=== PATIENT | male | born 1940 | race Caucasian/White ===

== ENCOUNTER → 2016-12-06 | Outpatient (CLI) | payer MEDICARE, BC ==
[2016-12-06 07:58] LABS: CH 31.7; CHCM 32.9; HCT 49.9 % (39.0-53.0); HDW 2.75; HGB 16.3 gm/dL (13.0-17.5); MCH 31.7 pg (25.0-35.0); MCHC 32.7 g/dL (31.0-37.0); Mean Platelet Volume 6.8; RBC 5.14 m/uL (4.30-5.90); RDW 13.7 % (11.5-15.5); WBC 10.8 k/uL (3.8-10.6)
[2016-12-06 08:00] LABS: Potassium 4.7 mmol/L (3.5-5.1)
== END | disposition home or self-care (01) ==
LOC: LABPAT 07:33
PROVIDERS: ATTEND Internal Medicine Interventional Cardiology
DX: Z01.812 Encounter for preprocedural laboratory examination (principal); R07.9 Chest pain, unspecified
CPT/HCPCS: 80051; 82565; 84520; 85027

== ENCOUNTER 2016-12-07 06:15 | Day surgery (SDC) | payer MEDICARE, BC ==
[2016-12-02 11:32] VITALS: BMI 27.3
[~2016-12-07 06:15] MED LIST: ALPRAZolam 0.25 MG TAB PO PRN; ALPRAZolam 0.5 MG TAB PO PRN; ASPIRIN 325 MG TAB PO STA; ATORVASTATIN 80 MG TAB PO STA; NITROGLYCERIN SL TABS 0.4 MG TAB SUBLINGUAL PRN; SODIUM CHLORIDE 0.9% 1,000 ML in EMPTY BAG 1 BAG IV ONE
[2016-12-07] MEDS ORDERED: fentaNYL (PF) 50 MCG/ML 2 ML AMP ONE (07:28)
[2016-12-07] MEDS ORDERED: HEPARIN SODIUM 1,000 UNIT/ML VIAL ONE (07:28)
[2016-12-07] MEDS ORDERED: diphenhydrAMINE 50 MG/ML 1 ML VIAL ONE (07:28)
[2016-12-07] MEDS ORDERED: VERAPAMIL 2.5 MG/ML 2 ML AMP ONE (07:29)
[2016-12-07] MEDS ORDERED: SODIUM CHLORIDE 0.9% (PF) 10 ML VIAL ONE (07:29)
[2016-12-07] MEDS ORDERED: diphenhydrAMINE 50 MG/ML 1 ML VIAL IVP ONE (07:40)
[2016-12-07] MEDS ORDERED: fentaNYL (PF) 50 MCG/ML 2 ML AMP IV ONE (07:43)
[2016-12-07] MEDS ORDERED: LIDOCAINE 2% INJ 20 MG/ML SQ ONE (07:49)
[2016-12-07] MEDS ORDERED: VERAPAMIL SYRINGE (5 MG/10 ML) INTRAARTER ONE (07:51)
[2016-12-07] MEDS ORDERED: CLOPIDOGREL 75 MG TAB ONE (08:00)
[2016-12-07] MEDS ORDERED: BIVALIRUDIN 250 MG in SODIUM CHLORIDE 0.9% 50 ML IV ONE (08:08)
[2016-12-07] MEDS ORDERED: BIVALIRUDIN BOLUS 250 MG/50 ML IV ONE (08:08)
[2016-12-07] MEDS ORDERED: CLOPIDOGREL 75 MG TAB PO ONE (08:11)
[2016-12-07] MEDS ORDERED: NITROGLYCERIN 1000MCG/10ML SYRINGE INTRACORON ONE (08:20)
[2016-12-07] MEDS ORDERED: IODIXANOL 320 MG/ML 100 ML INTRAARTER ONE (08:32)
[2016-12-07] MEDS ORDERED: ZOLPIDEM 5 MG TAB PO PRN (08:44)
[2016-12-07] MEDS ORDERED: MAG HYDROX/AL HYDROX/SIMETH 30 ML CUP PO PRN (08:44)
[2016-12-07] MEDS ORDERED: NITROGLYCERIN SL TABS 0.4 MG TAB SUBLINGUAL PRN (08:44)
[2016-12-07] MEDS ORDERED: RX INFO: IV CONTRAST WAS GIVEN 1 EACH MISC MISCELLANE PRN (08:44)
[2016-12-07] MEDS ORDERED: SODIUM CHLORIDE 0.9% 1,000 ML IV SCH (08:45)
[2016-12-07] MEDS: FLECAINIDE 50 MG TAB PO SCH ×2 (12:21→20:17)
[2016-12-07] MEDS: ASPIRIN 81 MG CHEW PO SCH (12:21)
[2016-12-07] MEDS: METOPROLOL TARTRATE 50 MG TAB PO SCH ×2 (12:21→20:18)
--- NOTE | 2016-12-07 16:27 | CC ---
DATE OF SERVICE: Mr. Howell is a 76-year-old male with known history of aortic valve replacement who presented with symptoms of progressive dyspnea on exertion as well as chest discomfort with physical activity, consistent with new onset angina pectoris. In view of that, recommendation made regarding cardiac catheterization. The procedure as well as the risks and complications were discussed with the patient who is in full understanding and agreement. PROCEDURE: Patient was brought to the sleep lab technologist in fasting semi state after receiving fentanyl and Benadryl. He was prepped and draped in conventional fashion using Xylocaine anesthesia and Seldinger technique, a 6 [place] sheath was introduced in left radial artery. Selective right and left coronary angiography was performed using 5 [place] 4 bend right and left Mack catheter. Multiple views of the coronary arteries including hemiaxial views today obtained. Following that, catheter was removed. Images were reviewed. The patient received intra-arterial verapamil. FINDINGS: LEFT MAIN: This is a large-size vessel bifurcating into left circumflex artery. Left main coronary artery has a 10% to 20% plaque distally. LEFT ANTERIOR DESCENDING ARTERY: This is a large-size vessel reaching toward the apex with a wrap around the apex segment, giving rise to small diagonal branch. The left anterior descending artery proximally has a 20% plaque. The rest of the vessel has no high-grade stenosis. LEFT CIRCUMFLEX: This is a large nondominant vessel, giving rise to a large obtuse marginal branch distally in the proximal segment of the left circumflex. There is complex 99% stenosis in the mid to distal segment. There is intimal plaque of about 40%. The rest of the vessel has no high-grade stenosis. RIGHT CORONARY ARTERY: This is a large dominant vessel, has a superior take off, bifurcating distally into PDA and posterolateral segment and branches. The right coronary artery has mild intimal disease in the midsegment of 20% to 30% without any evidence of high-grade stenosis. LEFT VENTRICULOGRAM: Left ventriculogram was not performed. CONCLUSION: 1. Critical stenosis involving the proximal left circumflex. 2. Mild distal left main disease and proximal LAD and mid right coronary artery disease. RECOMMENDATIONS: In view of the findings and anatomy, I have recommended proceeding with angioplasty and stenting of the left circumflex. The procedure as well as risks and complications were discussed with the patient who is in full understanding and agreement.
--- NOTE | 2016-12-07 16:45 | PTCA ---
DATE OF SERVICE: 76-year-old male with a known history of aortic valve disease status post aortic valve replacement who presented with new onset angina pectoris, underwent cardiac catheterization, was found to have critical stenosis involving the proximal left circumflex. In view of that, recommendation was made regarding angioplasty and stenting. The procedure as well as risks and complications were discussed with the patient who is in full understanding and agreement. PROCEDURE: A 6 [place] FR4 guiding catheter the system. After cannulating the left main, a 0.014 balanced medium weight J-wire was advanced across the lesion, positioned distally. Then a 2.5 x 12 mm Trek balloon was advanced and one inflation at 10 atmospheres was done. Following that, the balloon was removed and a 3.0 x 15 mm Xience Alpine stent was deployed, it was dilated at 14 atmospheres. After the last inflation, after appropriate wait, the balloon and the guidewire were withdrawn back in guiding catheter. Images were obtained and repeated. Those images reveal stable successful stenting. At that point, the guiding catheter, the balloon and the guidewire removed. The sheath was removed. Hemostasis was obtained with deployment of a TR band. There were no immediate complications. Patient was returned to his room in stable condition. Of note, the patient received Angiomax per protocol as well as oral loading dose of Clopidogrel. He has no significant chest pain or EKG changes with inflations. RESULT: Successful stenting of the proximal left circumflex with reduction in stenosis from 99% to 0%. RECOMMENDATION: Patient will be continued on aspirin, Plavix, beta momo, statin. The importance of dual antiplatelet treatment were discussed with the patient and his family who are in full understanding and agreement.
--- NOTE | 2016-12-07 16:47 | LTR ---
December 07, 2016 RE: DanteChai Dear Dr. La: I had the pleasure of performing cardiac catheterization, coronary angioplasty and stenting on Mr. Howell at [facility] on the 07 of December and a full copy of procedure note will be forwarded to you. In brief, he was found to have critical stenosis involving the proximal left circumflex underwent successful stenting of that vessel using a drug-eluting stent I am hopeful that this procedure will stabilize his status and I would recommend to continue dual antiplatelet treatment. Thank you again for allowing me to participate in this patient's care. Please feel free to call for any questions. Sincerely, MIMI ROSARIO MD
[2016-12-07] MEDS ORDERED: ATORVASTATIN 40 MG TAB PO SCH (21:00)
[2016-12-08 02:35] VITALS: RESP 17
[2016-12-08 02:49] VITALS: PULSE 66
[2016-12-08 06:52] LABS: Potassium 4.5 mmol/L (3.5-5.1)
[2016-12-08] MEDS: METOPROLOL TARTRATE 50 MG TAB PO SCH (08:47)
[2016-12-08] MEDS: ASPIRIN 81 MG CHEW PO SCH (08:47)
[2016-12-08] MEDS: FLECAINIDE 50 MG TAB PO SCH (08:47)
[2016-12-08 08:54] VITALS: BP 134/65; TEMP 97.8
[2016-12-08] MEDS ORDERED: CLOPIDOGREL 75 MG TAB PO SCH (09:00)
--- NOTE | 2016-12-08 09:10 | PN ---
Mr. Howell is a 76-year-old male, status post aortic valve replacement who presented with symptoms of angina pectoris, underwent cardiac catheterization, was found to have critical stenosis involving the proximal left circumflex and underwent stenting of that vessel. He is doing well today, ambulating without difficulty. Denying any chest pain. No dizziness, palpitation. He feels better. He continues to be at this time on Lipitor 40 mg daily, flecainide 50 mg twice a day, metoprolol tartrate 50 mg twice a day, aspirin once a day, Plavix 75 mg daily. PHYSICAL EXAMINATION: Blood pressure 144/60 with a heart rate in the 60s. LUNGS: Clear. HEART: Regular rate and rhythm. S1, S2, no S3, with systolic murmur heard at the base. No diastolic murmur. No rub. ABDOMEN: Soft, nontender. EXTREMITIES: No edema. Left radial pulse intact. Lab data revealed BUN and creatinine 19 and 1.42, potassium 4.5. EKG no acute changes. IMPRESSION: 1. Status post stenting of the left circumflex. 2. Status post aortic valve replacement. 3. Hypertension. 4. History of atrial flutter, status post ablation maintaining sinus mechanism. RECOMMENDATION: Patient will be discharged home today and followed as an outpatient.
== END 2016-12-08 11:21 | disposition home or self-care (01) ==
LOC: CATHCVL 06:15 → 6SEL 08:30 → CATHCVL 12-08 11:21
PROVIDERS: ATTEND Internal Medicine Interventional Cardiology
DX: I25.119 Atherosclerotic heart disease of native coronary artery with unspecified angina pectoris (principal); I48.3 Typical atrial flutter; I10 Essential (primary) hypertension; Z95.2 Presence of prosthetic heart valve; J84.10 Pulmonary fibrosis, unspecified; Z88.0 Allergy status to penicillin; Z82.49 Family history of ischemic heart disease and other diseases of the circulatory system; Z79.01 Long term (current) use of anticoagulants; Z79.899 Other long term (current) drug therapy
CPT/HCPCS: 93454; 85347; 80048; C9600; C1769 ×2; C1887 ×2; C1894; C1725; C1874; J2001; J1200; Q9967; J3010; J0583

== ENCOUNTER → 2017-02-15 | Outpatient (CLI) | payer MEDICARE, BC ==
[2017-02-15 09:39] LABS: Calcium 9.5 mg/dL (8.4-10.2); Potassium 4.3 mmol/L (3.5-5.1); Total Bilirubin 1.1 mg/dL (0.2-1.3); Total Protein 7.6 g/dL (6.3-8.2)
== END ==
LOC: LABWHC1 08:18
PROVIDERS: ATTEND Internal Medicine Interventional Cardiology
DX: E78.2 Mixed hyperlipidemia (principal)
CPT/HCPCS: 36415; 80053; 80061

== ENCOUNTER → 2017-05-12 | Outpatient (CLI) | payer MEDICARE, BC ==
[2017-05-12 07:56] LABS: ALT 32 U/L (21-72); AST 20 U/L (17-59); Cholesterol 123 mg/dL (<200); Creatine Kinase 60 U/L (55-170); HDL Cholesterol 46 mg/dL (40-60); Triglycerides 137 mg/dL (<150)
== END | disposition home or self-care (01) ==
LOC: LABWHC1 07:15
PROVIDERS: ATTEND Internal Medicine Interventional Cardiology
DX: E78.2 Mixed hyperlipidemia (principal)
CPT/HCPCS: 36415; 80061; 82550; 84450; 84460

== ENCOUNTER 2017-05-22 07:14 | Day surgery (SDC) | payer MEDICARE, BC ==
[2017-05-17 14:45] VITALS: BMI 23.5
[~2017-05-22 07:14] MED LIST changes: -ALPRAZolam 0.25 MG TAB PO PRN; -ALPRAZolam 0.5 MG TAB PO PRN; -ASPIRIN 325 MG TAB PO STA; -ATORVASTATIN 80 MG TAB PO STA; +LACTATED RINGERS 1,000 ML IV SCH; -NITROGLYCERIN SL TABS 0.4 MG TAB SUBLINGUAL PRN; -SODIUM CHLORIDE 0.9% 1,000 ML in EMPTY BAG 1 BAG IV ONE
[2017-05-22] MEDS ORDERED: LACTATED RINGERS 1,000 ML IV ONE ×2 (07:21→08:43)
[2017-05-22 07:39] LABS: Glucose,Whole Blood 104 mg/dL (75-99)
[2017-05-22] MEDS ORDERED: LIDOCAINE 1% INJ 10MG/ML (20 ML MDV) ONE (08:06)
[2017-05-22] MEDS ORDERED: PROPOFOL 10 MG/ML 20 ML VIAL IV ONE (08:06)
[2017-05-22 08:40] VITALS: RESP 16
--- NOTE | 2017-05-22 08:48 | P.PCN ---
Date of Procedure: 05/22/17 Preoperative Diagnosis: Postoperative Diagnosis: Procedure(s) Performed: Procedure: 1. Esophagogastroduodenoscopy and biopsy. 2 Total colonoscopy. Preoperative diagnosis: Chronic reflux symptoms and history of polyps. Postoperative diagnosis: 1. Small sliding hiatal hernia with no obvious esophagitis or complicated reflux disease. 2. Mild gastritis and moderate duodenitis. 3. Sigmoid diverticulosis. 4. Low-grade internal hemorrhoids without bleeding. Preparation: HalfLytely prep. Sedation: Was provided by anesthesia. Brief clinical history: The patient is a 76-year-old male who is scheduled for this evaluation because of history of polyps. His last exam was in March 2012. In addition, the patient has history of chronic reflux and because of history of asbestos exposure, and finding of spots on his lungs, he is part of ongoing surveillance and monitoring. Procedure: With the patient on his left lateral decubitus position and after informed consent and adequate sedation, I passed the Olympus-GIF 160 video upper endoscope through the cricopharyngeus down the esophagus. GE junction was around 40 cm from the incisors and there was a small sliding hiatal hernia. The esophagus did not show any obvious erosions, ulcers, strictures or Ramirez 's esophagus. The endoscope was then passed into the stomach which was insufflated with air and inspected in detail including the retroflex view in the cardia. There was some mottling and erythema in the antrum but no ulcers or erosions. Pyloric channel did not show any ulcers. Duodenal bulb shows some mottling and erythema and in the descending duodenum there was a position and finding of small erosions and superficial ulcerations consistent with moderate esophagitis. There was no bleeding or gastric outlet obstruction. I obtained biopsies from the duodenum, antrum and esophagus then the endoscope was withdrawn and I proceeded to do colonoscopy. Perianal area did not show any fissures or fistulas. There were no masses felt on digital rectal examination. The Olympus CFQ 160L video colonoscope was then inserted in the rectum in the usual fashion and advanced to the cecum. The mucosa appeared healthy. There were multiple diverticular orifices seen scattered in the sigmoid with no evidence of acute diverticulitis or strictures. No polyps or tumors were seen. I retroflexed the endoscope in the rectum before the endoscope was withdrawn. Low-grade internal hemorrhoids were noted but there was no evidence of bleeding. The patient tolerated the procedure well. Plan the patient was reassured. Discussed dietary measures. At his age I did not recommend any further surveillance colonoscopy in the future and that can be kept as a contingency based on his overall health. Certainly, with the findings in the stomach and duodenum, further management of any upper GI complaints he may have could be addressed based on his course and biopsy results. He will follow up with you as planned. Implants: Indications for Procedure: Operative Findings: Description of Procedure:
[2017-05-22 09:33] VITALS: BP 104/68; PULSE 57
== END 2017-05-22 09:40 | disposition home or self-care (01) ==
LOC: ORWHC2ENDO 07:14
DX: Z12.11 Encounter for screening for malignant neoplasm of colon (principal); K21.0 Gastro-esophageal reflux disease with esophagitis; K29.50 Unspecified chronic gastritis without bleeding; K44.9 Diaphragmatic hernia without obstruction or gangrene; K29.80 Duodenitis without bleeding; K57.30 Diverticulosis of large intestine without perforation or abscess without bleeding; K64.8 Other hemorrhoids; Z86.010 Personal history of colon polyps; Z77.090 Contact with and (suspected) exposure to asbestos; E11.9 Type 2 diabetes mellitus without complications; I48.91 Unspecified atrial fibrillation; M19.90 Unspecified osteoarthritis, unspecified site; Z79.02 Long term (current) use of antithrombotics/antiplatelets; Z79.899 Other long term (current) drug therapy; Z91.09 Other allergy status, other than to drugs and biological substances
CPT/HCPCS: 88305; 88342; 43239; J2001; J2704; G0105

== ENCOUNTER → 2017-08-10 | Outpatient (CLI) | payer MEDICARE, BC ==
[2017-08-10 14:54] LABS: CH 31.7; CHCM 33.2; HCT 46.1 % (39.0-53.0); HDW 2.62; HGB 15.1 gm/dL (13.0-17.5); MCH 31.6 pg (25.0-35.0); MCHC 32.9 g/dL (31.0-37.0); MCV 96.3 fL (80.0-100.0); Mean Platelet Volume 7.3; RBC 4.78 m/uL (4.30-5.90); RDW 14.7 % (11.5-15.5)
--- NOTE | 2017-08-10 14:57 | XR ---
EXAMINATION TYPE: XR chest 2V DATE OF EXAM: 08/10/2017 COMPARISON: 10/20/2016 TECHNIQUE: PA and lateral views submitted. HISTORY: Right chest pain FINDINGS: The lungs are clear and there is no pneumothorax, pleural effusion, or focal pneumonia. Calcificati on along the right chest. Stable pleural-based thickening stable. Underlying COPD suspected. Arthropa thy of the shoulders. Postoperative change involving the mediastinum. Hypertrophic and degenerative c hange of the spine. IMPRESSION: 1. No acute process. Correlate for COPD and chronic interstitial lung disease. 2. Pleural-based thickening and calcification.
[2017-08-10 15:03] LABS: Calcium 9.7 mg/dL (8.4-10.2); Potassium 5.1 mmol/L (3.5-5.1); Total Bilirubin 0.6 mg/dL (0.2-1.3); Total Protein 7.6 g/dL (6.3-8.2)
== END | disposition home or self-care (01) ==
LOC: LABWHC1 14:08
PROVIDERS: ATTEND Internal Medicine Interventional Cardiology
DX: R07.89 Other chest pain (principal); I25.10 Atherosclerotic heart disease of native coronary artery without angina pectoris
CPT/HCPCS: 36415; 71020; 80053; 85027; 85379

== ENCOUNTER → 2017-08-16 | Outpatient (CLI) | payer MEDICARE, BC ==
--- NOTE | 2017-08-16 15:44 | XR ---
EXAMINATION TYPE: XR chest 2V DATE OF EXAM: 08/16/2017 COMPARISON: Prior chest x-ray 08/10/2017 HISTORY: Dyspnea TECHNIQUE: Frontal and lateral views of the chest are obtained. FINDINGS: Patient is post median sternotomy. Pleural parenchymal changes show similar appearance to prior exam. No pneumothorax or pleural effusion. Cardiomediastinal silhouette, pulmonary vascularity and homer are stable. Patient is post aortic valve IMPRESSION: Stable exam, no acute abnormality. CT scan could be performed for increased sensitivity as indicated. Interstitial lung disease. Postop changes.
--- NOTE | 2017-08-16 17:00 | NM ---
EXAMINATION TYPE: NM pul vent and perfuse DATE OF EXAM: 08/16/2017 COMPARISON: Correlation radiograph same day HISTORY: 76-year-old male with shortness of breath, dyspnea TECHNIQUE: Utilizing inhalation of 71.5 mCi Tc 99m DTPA aerosol and intravenous injection of 5.5 mCi of Tc 99m MAA, ventilation and perfusion images are acquired post injection in multiple projections. FINDINGS: Mild heterogeneity of ventilation and perfusion. Relatively decreased ventilation and perfusion in elizabeth th upper lungs probably due to underlying chronic lung disease. No mismatched perfusion defects are i dentified. IMPRESSION: Low probability for pulmonary embolus.
== END | disposition home or self-care (01) ==
LOC: RADNMMAIN 15:07
PROVIDERS: ATTEND Internal Medicine Interventional Cardiology
DX: J84.9 Interstitial pulmonary disease, unspecified (principal); Z98.890 Other specified postprocedural states
CPT/HCPCS: 71020; 78582; A9540; A9567

== ENCOUNTER → 2018-05-29 | Outpatient (CLI) | payer MEDICARE, BC ==
--- NOTE | 2018-05-29 08:32 | CT ---
EXAMINATION TYPE: High-resolution CT chest DATE OF EXAM: 05/29/2018 COMPARISON: 10/17/2014 and radiographs 05/23/2018 HISTORY: 77-year-old male follow-up Pulmonary fibrosis TECHNIQUE: Contiguous high-resolution axial scanning of the chest with 1 mm slice thickness and 1 cm gap per HRCT protocol. No contrast administered. Both supine and prone imaging was performed. CT DLP: 583.5 mGycm Automated exposure control for dose reduction was used. FINDINGS: Heart is upper limits of normal in size without pericardial effusion. Median sternotomy wires are pre sent. Prosthetic aortic valve. Ascending aorta remains aneurysmal at 4.1 cm. Conventional arch vessel branching anatomy. No thoracic lymphadenopathy by CT size criteria allowing for HRCT technique. There is pleural-based thickening along the right hemithorax which is new from prior exam. Scattered calcified pleural plaques especially on the right and continued chronic small right pleural effusion. Right apical pleural-parenchymal scarring and redemonstrated fibrotic changes at the lung bases with bronchiectasis, reticular densities, and patchy areas of groundglass which show some increase from 1 12/18/2013. There is a new 2.4 cm subpleural lobulated nodule peripheral right upper lobe/apex, series 4 image 7. Additional couple patchy areas of subpleural density in the right upper lobe measuring up to 1.2 cm, series 4 image 11 and 12. No consolidation or pleural effusion seen. Small hiatal hernia visualized upper abdomen otherwise shows no gross abnormality by HRCT technique. Bones: Endplate spondylosis throughout. Degenerative changes left glenohumeral joint. IMPRESSION: 1. REDEMONSTRATED ASBESTOS RELATED PLEURAL DISEASE AND PULMONARY FIBROSIS IN THE LOWER LUNGS WITH ASS OCIATED TRACTION BRONCHIECTASIS. FINE INTERSTITIAL FIBROSIS WITH GROUNDGLASS SHOWS INCREASE FROM 2014 . 2. CHRONIC SMALL RIGHT PLEURAL EFFUSION BUT WITH NEW MILD PLEURAL-BASED THICKENING AROUND THE RIGHT L LILI. MOST NOTABLY, THERE IS A NEW 2.4 CM SUBPLEURAL/PLEURAL BASED NODULE ALONG THE PERIPHERAL RIGHT A PEX/RIGHT UPPER LOBE WORRISOME FOR EITHER MESOTHELIOMA OR LUNG CANCER. FURTHER APPROPRIATE WORKUP AND MANAGEMENT RECOMMENDED.
== END | disposition home or self-care (01) ==
LOC: RADCTMAIN 07:04
PROVIDERS: ATTEND Internal Medicine
DX: J84.10 Pulmonary fibrosis, unspecified (principal); J92.0 Pleural plaque with presence of asbestos; J47.9 Bronchiectasis, uncomplicated; J90 Pleural effusion, not elsewhere classified; R91.1 Solitary pulmonary nodule
CPT/HCPCS: 71250

== ENCOUNTER → 2018-06-02 | Outpatient (CLI) | payer MEDICARE, BC ==
--- NOTE | 2018-06-06 20:09 | PE ---
EXAMINATION TYPE: PET CT fusion skull to thigh DATE OF EXAM: 06/02/2018 CLINICAL HISTORY: 77-year-old male initial staging for mesothelioma. TECHNIQUE: Following the intravenous administration of 14.5 mCi of F-18 FDG, whole body images are performed from the skull base to the midthigh. Images are reviewed on the computer in the coronal, a xial, and sagittal planes. Reconstructed rotating images are created on independent workstation and reviewed on the computer. A localization and attenuation correction CT is performed in conjunction with the PET scan. Glucose level: 101 mg/dL CTDI: 4.73 mGy DLP: 476.11 mGy-cm COMPARISON: Correlation CT 05/29/[address] 10/17/2014 FINDINGS: PET: A 2.3 cm round pleural-based mass along the lateral right apex shows very intense FDG uptake, max SUV 16.0. The diffuse pleural rind around the right lung noted to be new from 10/17/2014 shows variable m ild FDG uptake, max SUV 2.6. However, there is some more nodular areas of pleural-based thickening th at show borderline moderate uptake, max SUV 3.5, for example, peripheral right upper lobe axial image 92. Second area of pleural and subpleural intense hypermetabolism is located along the peripheral right l ower lobe at the site of greatest soft tissue thickening, max SUV 6.5. This spans up to 8.9 x 1.6 cm. The chronic small right pleural effusion shows minimal FDG uptake similar to the generalized pleural based thickening along the lower left hemithorax, max SUV 1.7. Mediastinal lymph nodes measure up to 8 mm in the right tracheobronchial angle and precarinal region but do not show significant FDG uptake. Average liver SUV 2.4. Tiny nodule within the perirenal fat posterior right upper abdomen, axial image 152 was slightly smal ler but present back in 2013. This area shows no discrete FDG uptake. Questionable clinical significa nce. There is slightly elongated increased FDG uptake at the proximal right hamstring, borderline moderate uptake, max SUV 3.4 likely due to tendinopathy. Otherwise, physiologic FDG uptake within the neck, abdomen, and pelvis. ATTENUATION CORRECTION CT: Visualized paranasal sinuses and mastoid air cells are pneumatized. No cervical lymphadenopathy. Median sternotomy wires are present with prosthetic aortic valve. The heart is borderline enlarged wi thout pericardial effusion. Ascending aortic aneurysm are 4.2 cm not significantly changed from 10/17 where it measured 4.1 cm. Conventional arch vessel branching anatomy. No thoracic lymphadenopat hy by CT size criteria. Changes of asbestos related pleural disease with pleural based thickening and calcified pleural plaques. Chronic small right pleural effusion. Fibrotic changes at the lung bases with some traction bronchiectasis as described on 05/29/2018. Small hiatal hernia. No dilated small bowel, free fluid, or free air. No mesenteric or retroperitone al lymphadenopathy. Normal appendix. Scattered mild stool. No pericolonic inflammatory change. Descen ding and sigmoid colonic diverticulosis. The bladder is urine distended. Prostate gland is enlarged measuring 6.2 cm. No abnormal fluid collec tion in the pelvis or pelvic lymphadenopathy. Bones: End-stage degenerative changes at the left hip and [id number] at the right hip. Degenera tive changes at the SI joints and within the lumbar spine. Endplate spondylosis thoracic spine. IMPRESSION: 1. 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 The 2.3 cm pleural-based mass at the lateral right apex shows very intense hypermetabolism compatibl e with carcinoma. 2.The large area of pleural and subpleural soft tissue thickening at the peripheral right lower lobe spanning up to 8.9 x 1.6 cm has intense uptake and is also suggestive of mesothelioma. 3. There are scattered nodular areas along the rind that show borderline moderate uptake and are susp icious as well, for example, axial image 92. The chronic changes of asbestos related pleural disease and most of the rind have minimal to mild uptake. 4. No evidence for distant metastases. 5. Incidental: Ascending aortic aneurysm (4.2 cm, relatively stable), small hiatal hernia, left-sided colonic diverticulosis, and prostatomegaly (6.2 cm).
== END | disposition home or self-care (01) ==
LOC: RADPETMAIN 13:54
PROVIDERS: ATTEND Internal Medicine Critical Care Medicine
DX: C45.0 Mesothelioma of pleura (principal); J94.8 Other specified pleural conditions
CPT/HCPCS: 78815; A9552

== ENCOUNTER 2018-07-04 08:50 | Day surgery (SDC) | payer MEDICARE, BC ==
[2018-07-04 09:27] LABS: Mean Platelet Volume 6.6; Platelet Count 222 k/uL (150-450)
[2018-07-04 09:32] LABS: INR 1.2 (<1.2); Prothrombin Time 11.2 sec (9.0-12.0)
[2018-07-04 11:23] VITALS: RESP 18
[2018-07-04 11:25] VITALS: TEMP 98
--- NOTE | 2018-07-04 11:59 | XR ---
EXAMINATION TYPE: XR chest 1V portable DATE OF EXAM: 07/04/2018 COMPARISON: 05/23/2018 HISTORY: Post lung biopsy TECHNIQUE: Single frontal view of the chest is obtained. FINDINGS: There is a mass in the right upper lobe. There is subsegmental consolidation and pleural t hickening involving the right lung. Left lung is clear. Postoperative changes are seen. No overt fail ure. Arthropathy of the shoulders. IMPRESSION: No pneumothorax post lung biopsy
--- NOTE | 2018-07-04 12:16 | CT ---
EXAMINATION TYPE: CT guided FNA DATE OF EXAM: 07/04/2018 COMPARISON: 06/02/2018 HISTORY: Right lung mass CT DLP: 2057.2 mGycm The procedure is discussed with the patient, the risks, complications, benefits and alternatives, wer e discussed and any questions were answered. Informed consent was obtained. The patient is placed s upine on the CT table, prepped and draped in the usual sterile fashion. Utilizing a 22-gauge Chiba needle access into the right upper lobe mass was achieved with 2 passes pe rformed. Pathology confirmed adequate sample. All elements of maximal barrier technique were utiliz ed. The patient remained stable throughout the procedure with no immediate postprocedural complicati on. IMPRESSION: 1. Successful CT guided fine needle aspiration of a right upper lobe lung mass
[2018-07-04 12:46] VITALS: BP 113/71; PULSE 61
--- NOTE | 2018-07-04 13:11 | XR ---
EXAMINATION TYPE: XR chest 1V portable DATE OF EXAM: 07/04/2018 COMPARISON: 07/04/2018 HISTORY: Follow-up pneumothorax TECHNIQUE: Single frontal view of the chest is obtained. FINDINGS: Pleural-parenchymal changes involving the right lung are stable. Right upper lobe lung mas s is stable. There is no sizable pneumothorax. Postoperative changes are seen. Underlying COPD suspec carmelo. IMPRESSION: 1. No pneumothorax post lung biopsy.
== END 2018-07-04 13:15 | disposition home or self-care (01) ==
LOC: RADPROMAIN 08:50
PROVIDERS: ATTEND Surgery
DX: C34.91 Malignant neoplasm of unspecified part of right bronchus or lung (principal)
CPT/HCPCS: 10022; 36415; 71045; 77012; 85049; 85610; 88173; 88305; 88341; 88342

== ENCOUNTER → 2018-10-08 | Outpatient (CLI) | payer MEDICARE, BC ==
--- NOTE | 2018-10-08 23:28 | CT ---
EXAMINATION TYPE: CT chest w con DATE OF EXAM: 10/08/2018 COMPARISON: PET/CT 06/02/2018 HISTORY: 78-year-old male Follow up to Rt upper lobe CA TECHNIQUE: Contiguous axial scanning of the chest after the administration of 80 mL of Isovue 300. C oronal/sagittal reconstructions performed. CT DLP: 533mGycm. Automatic exposure control utilized for a dose reduction. FINDINGS: Median sternotomy wires are present with post-CABG changes. Heart upper limits of normal in size without pericardial effusion. Prosthetic aortic valve. Ascending aorta remains aneurysmal at 4.1 cm. Conventional arch vessel branching anatomy. 7 mm precarinal lymph node, unchanged. No enlarging thoracic lymphadenopathy. Bilateral pleural-based thickening with scattered calcified pleural plaques are redemonstrated. Chron ic small right-sided pleural effusion and redemonstrated right-sided pleural rind, overall similar. The subpleural mass along the lateral right apex shows interval decrease in size now measuring 1.1 cm versus 2.3 cm, previously. The elongated area of subpleural thickening and density along the peripheral right lower lobe is over all stable in appearance without any interval progression spending up to 8.3 cm x 1.5 cm thick. Extensive subpleural reticular changes within the mid and lower lungs. Visualized upper abdomen shows no gross abnormality. Bones: Bridging anterior endplate spondylosis upper to mid thoracic spine compatible with DISH. No os seous destructive process seen. IMPRESSION: 1. Redemonstration of bilateral changes of asbestos related pleural disease, more so on the right wit h stable pleural rind and small chronic right-sided pleural effusion. 2. The subpleural mass along the lateral right apex has decreased in size now measuring 1.1 cm versus 2.3 cm, previously. 3. Elongated thickened band of soft tissue density at the peripheral right lower lobe is overall stab le in appearance without any interval progression or increasing nodularity, measuring up to 8.3 cm lo ng and 1.5 cm thick. The area was noted to be hypermetabolic on patient's prior PET/CT. 4. Stable ascending aortic aneurysm at 4.1 cm.
== END | disposition home or self-care (01) ==
LOC: RADCTMAIN 12:07
PROVIDERS: ATTEND Radiology Radiation Oncology
DX: C34.11 Malignant neoplasm of upper lobe, right bronchus or lung (principal); I71.2 Thoracic aortic aneurysm, without rupture; J90 Pleural effusion, not elsewhere classified; J94.8 Other specified pleural conditions
CPT/HCPCS: 82565; 84520; 71260; 36415; Q9967

== ENCOUNTER → 2018-11-14 | Outpatient (CLI) | payer MEDICARE, BC ==
[2018-11-14 16:44] LABS: Albumin 4.2 g/dL (3.80-4.90); Albumin/Globulin Ratio 2.21 (1.20-2.10); Anion Gap 8.9 mmol/L (4.00-12.00); Calcium 9.1 mg/dL (8.7-10.3); Carbon Dioxide 24.1 mmol/L (21.6-31.8); Globulin 1.9 g/dL (1.6-3.3); LDL Cholesterol,Calculated 55.2 mg/dL (0.0-131.0); Potassium 4.6 mmol/L (3.5-5.5); Total Bilirubin 0.6 mg/dL (0.2-1.2); Total Protein 6.1 g/dL (6.2-8.2); VLDL Calculation 18.8 mg/dL (5.00-40.00)
== END ==
LOC: LABWHC1 07:47
PROVIDERS: ATTEND Internal Medicine Interventional Cardiology
DX: E78.2 Mixed hyperlipidemia (principal); R00.2 Palpitations
CPT/HCPCS: 36415; 80053; 80061; 84443

== ENCOUNTER → 2019-01-14 | Outpatient (CLI) | payer MEDICARE, BC ==
--- NOTE | 2019-01-14 13:16 | CT ---
EXAMINATION TYPE: CT chest abdomen w con DATE OF EXAM: 01/14/2019 COMPARISON: Prior chest CT 10/08/2018, PET/CT 06/02/2018 HISTORY: Follow up lung cancer CT DLP: 670.4 mGycm. Automated Exposure Control for Dose Reduction was Utilized. CONTRAST: CT scan of the thorax, abdomen and pelvis is performed with IV Contrast, patient injected with 80 mL of Isovue 300. FINDINGS: LUNGS: The lungs are remarkable for volume loss in the right hemithorax, compensatory hypertrophy lef t hemithorax. There is diffuse pleural thickening circumferentially in the right hemithorax with some pleural calcification present bilaterally towards the lung bases posteriorly. Interstitial changes a re again noted within the lungs greatest at the lung bases. The tracheobronchial tree is patent. MEDIASTINUM: There are no greater than 1 cm hilar or mediastinal lymph nodes. No pericardial effusi on is seen. Patient is post median sternotomy. Metallic artifact at the aortic root level. There are coronary artery calcifications present. Possible small hiatal hernia. Aorta shows borderline dilation at 4 cm proximally LIVER/GB: No significant abnormality is appreciated. Subcentimeter nodular soft tissue density poste rior to the right lobe of liver is stable. PANCREAS: No significant abnormality is seen. SPLEEN: No significant abnormality is seen. ADRENALS: No significant abnormality is seen. KIDNEYS: No significant abnormality is seen. BOWEL: No significant abnormality is seen. GENITAL ORGANS: No gross abnormality seen. LYMPH NODES: No greater than 1cm abdominal or pelvic lymph nodes are appreciated. OSSEOUS STRUCTURES: Degenerative disc changes noted in the visualized spine. Facet arthropathy noted especially at the lower lumbar spine. Arthropathy present within the shoulders. OTHER: No significant additional abnormality is seen. IMPRESSION: Findings are similar to prior exam. Pleural thickening is described. Correlate for asbest os related disease.
== END | disposition home or self-care (01) ==
LOC: RADCTMAIN 12:01
PROVIDERS: ATTEND Radiology Radiation Oncology
DX: C34.11 Malignant neoplasm of upper lobe, right bronchus or lung (principal); J92.9 Pleural plaque without asbestos; Z92.3 Personal history of irradiation; Z87.891 Personal history of nicotine dependence
CPT/HCPCS: 82565; 84520; 71260; 74160; 36415; Q9967

== ENCOUNTER 2019-05-18 10:37 | Observation (INO) | payer MEDICARE, BC ==
[2019-05-18] MEDS ORDERED: SODIUM CHLORIDE 0.9% 500 ML 500 ML IV STA (11:00)
--- NOTE | 2019-05-18 11:07 | ED ---
General Adult HPI - General Chief complaint: Shortness of Breath Stated complaint: RAVINDER Time Seen by Provider: 05/18/19 10:40 Source: patient, RN notes reviewed Mode of arrival: ambulatory Limitations: no limitations - History of Present Illness Initial comments: This is an 78-year-old male who presents emergency department with past medical history significant for mesothelioma. Patient states she recently had a spot radiated and left him with a little pneumonitis. Patient states him and his recently drove out to [place] and back. 2 weeks ago the patient stated he started having some shortness of breath and a cough and both of gotten progre ssively worse. Patient denies any chest pain or palpitations. Patient states exertion definitely makes shortness of breath worse. Patient denies any headache patient denies numbness weakness. Patient denies lightheadedness dizziness or near syncopal episode. Patient denies any swelling to the legs or calf tenderness. - Related Data Home Medications Medication Instructions Recorded Confirmed Flecainide [Tambocor] 50 mg PO BID 07/28/14 05/18/19 Metoprolol Tartrate [Lopressor] 50 mg PO BID 07/28/14 05/18/19 Atorvastatin [Lipitor] 20 mg PO HS 05/17/17 05/18/19 Isosorbide Mononitrate ER [Imdur] 30 mg PO DAILY 06/26/18 05/18/19 predniSONE 30 mg PO DAILY 05/18/19 05/18/19 Previous Rx's Medication Instructions Recorded Aspirin 81 mg PO DAILY chew 12/08/16 Clopidogrel [Plavix] 75 mg PO DAILY #90 tab 12/08/16 Nitroglycerin Sl Tabs [Nitrostat] 0.4 mg SUBLINGUAL Q5M PRN #25 tab 12/08/16 Allergies Allergy/AdvReac Type Severity Reaction Status Date / Time amoxicillin [Amoxicillin] Allergy Rash/Hives Verified 05/18/19 11:18 Review of Systems ROS Statement: Those systems with pertinent positive or pertinent negative responses have been documented in the HPI. ROS Other: All systems not noted in ROS Statement are negative. Past Medical History Past Medical History: Cancer, GERD/Reflux, Osteoarthritis (OA), Syncope Additional Past Medical History / Comment(s): had past chest pressure radiating to left shoulder/neck/face/head, murmur, sinus,glasses, [place],upper dentures/lower partial, having difficulty with activity and SOB. asbestosise exposure and pleural based lung mass. History of Any Multi-Drug Resistant Organisms: None Reported Past Surgical History: Cardiac Valve Replacement, Heart Catheterization, Hernia Repair, Tonsillectomy Additional Past Surgical History / Comment(s): kate, aortic valve replacement 03/2010, nasel surg x3 , rt cataract, colonoscopy, clay inguinal hernia Past Anesthesia/Blood Transfusion Reactions: No Reported Reaction Past Psychological History: No Psychological Hx Reported Smoking Status: Never smoker Past Alcohol Use History: None Reported Past Drug Use History: None Reported - Past Family History Mother Family Medical History: No Reported History Father Family Medical History: Cancer Additional Family Medical History / Comment(s): heart problems Sister(s) Family Medical History: Cancer Additional Family Medical History / Comment(s): famaily hx of cancer- breast, lung, esophageal, skin, pancareatic. General Exam - General Exam Comments Initial Comments: GENERAL: Patient is well-developed and well-nourished. Patient is nontoxic and well- hydrated and is in mild distress. ENT: Neck is soft and supple. No significant lymphadenopathy is noted. Oropharynx is clear. Moist mucous membranes. Neck has full range of motion without eliciting any pain. EYES: The sclera were anicteric and conjunctiva were pink and moist. Extraocular movements were intact and pupils were equal round and reactive to light. Eyelids were unremarkable. PULMONARY: Patient has slight crackles in the right base. CARDIOVASCULAR: Patient is tachycardic at 125 beats a minute ABDOMEN: Soft and nontender with normal bowel sounds. SKIN: Skin is clear with no lesions or rashes and otherwise unremarkable. NEUROLOGIC: Patient is alert and oriented x3. Cranial nerves II through XII are grossly intact. Motor and sensory are also intact. Normal speech, volume and content. Symmetrical smile. MUSCULOSKELETAL: Normal extremities with adequate strength and full range of motion. LYMPHATICS: No significant lymphadenopathy is noted PSYCHIATRIC: Normal psychiatric evaluation. Limitations: no limitations Course Vital Signs 05/18/19 05/18/19 05/18/19 10:43 11:45 12:30 Temperature 97.5 F L Pulse Rate 52 L 73 76 Respiratory 18 18 18 Rate Blood Pressure 101/60 111/73 99/65 O2 Sat by Pulse 96 98 98 Oximetry Medical Decision Making - Medical Decision Making EKG shows sinus tachycardia at 125 bpm OR interval is 142 QRS is 78 QT interval 308 QTC is 444. Patient's EKG shows no ST segment elevation or depression or T wave abnormalities are noted. Chest x-ray shows no acute abnormality. Computed tomography scan of the chest shows no acute normalities. Patient's sugar was 461. The patient Humalog. I gave the patient a breathing treatment because he still short of breath. I spoke with sheet agreed to admit the patient admitted the patient wrote admitting orders. I consult Dr. Lake - Lab Data Result diagrams: 05/18/19 10:58 05/18/19 10:58 Lab Results 05/18/19 05/18/19 05/18/19 Range/Units 10:58 10:58 10:58 WBC 12.6 H (3.8-10.6) k/uL RBC 4.61 (4.30-5.90) m/uL Hgb 14.8 (13.0-17.5) gm/dL Hct 43.4 (39.0-53.0) % MCV 94.1 (80.0-100.0) fL MCH 32.0 (25.0-35.0) pg MCHC 34.0 (31.0-37.0) g/dL RDW 17.3 H (11.5-15.5) % Plt Count 173 (150-450) k/uL Neutrophils % 84 % Lymphocytes % 9 % Monocytes % 6 % Eosinophils % 1 % Basophils % 0 % Neutrophils # 10.6 H (1.3-7.7) k/uL Lymphocytes # 1.1 (1.0-4.8) k/uL Monocytes # 0.7 (0-1.0) k/uL Eosinophils # 0.1 (0-0.7) k/uL Basophils # 0.0 (0-0.2) k/uL Anisocytosis Slight PT 10.0 (9.0-12.0) sec INR 0.9 (<1.2) APTT 22.3 (22.0-30.0) sec D-Dimer 0.89 H (<0.60) mg/L FEU Sodium 136 L (137-145) mmol/L Potassium 4.2 (3.5-5.1) mmol/L Chloride 98 (98-107) mmol/L Carbon Dioxide 26 (22-30) mmol/L Anion Gap 12 mmol/L BUN 19 (9-20) mg/dL Creatinine 1.20 (0.66-1.25) mg/dL Est GFR (CKD-EPI)AfAm 66 (>60 ml/min/1.73 sqM) Est GFR (CKD-EPI)NonAf 57 (>60 ml/min/1.73 sqM) Glucose 461 H (74-99) mg/dL Calcium 9.1 (8.4-10.2) mg/dL Magnesium 2.0 (1.6-2.3) mg/dL Total Bilirubin 2.2 H (0.2-1.3) mg/dL AST 16 L (17-59) U/L ALT 24 (21-72) U/L Alkaline Phosphatase 103 (38-126) U/L Troponin I (0.000-0.034) ng/mL Total Protein 6.4 (6.3-8.2) g/dL Albumin 3.7 (3.5-5.0) g/dL 05/18/19 Range/Units 10:58 WBC (3.8-10.6) k/uL RBC (4.30-5.90) m/uL Hgb (13.0-17.5) gm/dL Hct (39.0-53.0) % MCV (80.0-100.0) fL MCH (25.0-35.0) pg MCHC (31.0-37.0) g/dL RDW (11.5-15.5) % Plt Count (150-450) k/uL Neutrophils % % Lymphocytes % % Monocytes % % Eosinophils % % Basophils % % Neutrophils # (1.3-7.7) k/uL Lymphocytes # (1.0-4.8) k/uL Monocytes # (0-1.0) k/uL Eosinophils # (0-0.7) k/uL Basophils # (0-0.2) k/uL Anisocytosis PT (9.0-12.0) sec INR (<1.2) APTT (22.0-30.0) sec D-Dimer (<0.60) mg/L FEU Sodium (137-145) mmol/L Potassium (3.5-5.1) mmol/L Chloride (98-107) mmol/L Carbon Dioxide (22-30) mmol/L Anion Gap mmol/L BUN (9-20) mg/dL Creatinine (0.66-1.25) mg/dL Est GFR (CKD-EPI)AfAm (>60 ml/min/1.73 sqM) Est GFR (CKD-EPI)NonAf (>60 ml/min/1.73 sqM) Glucose (74-99) mg/dL Calcium (8.4-10.2) mg/dL Magnesium (1.6-2.3) mg/dL Total Bilirubin (0.2-1.3) mg/dL AST (17-59) U/L ALT (21-72) U/L Alkaline Phosphatase (38-126) U/L Troponin I 0.021 (0.000-0.034) ng/mL Total Protein (6.3-8.2) g/dL Albumin (3.5-5.0) g/dL Disposition Clinical Impression: Dyspnea, New onset type 2 diabetes mellitus Disposition: ADMITTED IP TO THIS HOSP Referrals: Aroldo Gaytan DO [Primary Care Provider] - 1-2 days Time of Disposition: 13:28
[2019-05-18 11:39] LABS: Albumin 3.7 g/dL (3.5-5.0); Anisocytosis Slight; Basophils % (A) 0 %; Calcium 9.1 mg/dL (8.4-10.2); Eosinophils # (A) 0.1 k/uL (0-0.7); Eosinophils % (A) 1 %; HCT 43.4 % (39.0-53.0); HGB 14.8 gm/dL (13.0-17.5); Lymphocytes # (A) 1.1 k/uL (1.0-4.8); Lymphocytes % (A) 9 %; MCV 94.1 fL (80.0-100.0); Monocytes # (A) 0.7 k/uL (0-1.0); Monocytes % (A) 6 %; Neutrophils # (A) 10.6 k/uL (1.3-7.7); Neutrophils % (A) 84 %; Platelet Count 173 k/uL (150-450); Potassium 4.2 mmol/L (3.5-5.1); RBC 4.61 m/uL (4.30-5.90); RDW 17.3 % (11.5-15.5); Total Bilirubin 2.2 mg/dL (0.2-1.3); Total Protein 6.4 g/dL (6.3-8.2); WBC 12.6 k/uL (3.8-10.6)
[2019-05-18 11:46] LABS: INR 0.9 (<1.2); Partial Thromboplastin Time 22.3 sec (22.0-30.0)
--- NOTE | 2019-05-18 11:50 | XR ---
EXAMINATION TYPE: XR chest 2V DATE OF EXAM: 05/18/2019 COMPARISON: 02/05/2019 TECHNIQUE: PA and lateral views submitted. HISTORY: Shortness of breath FINDINGS: Median sternotomy wires are present. Pleural-based densities relating to asbestos related pleural dis ease. Chronic small right pleural effusion and band of opacity right mid to lower lung. Pleural-based thickening throughout the right hemithorax. Previous nodule at the lateral right apex has been repla toni by prominent interstitial density throughout the apex. Median sternotomy wires with prosthetic ao rtic valve. Arthropathy of the shoulders. IMPRESSION: Stable findings. 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 The previously seen lateral right apical nodule has be en replaced by interstitial infiltrate, possibly fibrosis if there has been radiation therapy here. S ubtle underlying infectious infiltrate would be difficult to exclude.
[2019-05-18 11:56] LABS: D-Dimer 0.89 mg/L FEU (<0.60)
[2019-05-18] MEDS ORDERED: KETOROLAC 60 MG/2 ML VIAL IVP STA (12:13)
--- NOTE | 2019-05-18 12:50 | CT ---
EXAMINATION TYPE: CT chest angio for PE DATE OF EXAM: 05/18/2019 COMPARISON: 01/14/2019 HISTORY: Breathing troubles CT DLP: 339 mGycm Automated exposure control for dose reduction was used. CONTRAST: CT Chest for pulmonary embolism performed with with IV Contrast, patient injected with 80 mL of Isovu e 300. FINDINGS: LUNGS: The lungs are remarkable for volume loss in the right hemithorax, compensatory hypertrophy lef t hemithorax. There is diffuse pleural thickening circumferentially in the right hemithorax with some pleural calcification present bilaterally towards the lung bases posteriorly. Interstitial changes a re again noted within the lungs greatest at the lung bases. The tracheobronchial tree is patent. 3 mm left upper lobe pulmonary nodule. MEDIASTINUM: There are no greater than 1 cm hilar or mediastinal lymph nodes. No pericardial effusion is seen. Patient is post median sternotomy. Metallic artifact at the aortic root level. There are co ronary artery calcifications present. Possible small hiatal hernia. Aorta demonstrates mild aneurysmal dilation measuring 4.4 cm within the ascending aorta and stable fr om prior. Coronary artery calcification and cardiomegaly. Pulmonary arteries enhance normally. OTHER: No additional significant abnormality is seen. IMPRESSION: 1. No CT evidence of pulmonary embolism. 2. Chronic pleural-parenchymal changes suggestive of asbestos related disease. Pleural thickening and calcification is seen and findings suggestive of chronic interstitial lung disease noted. Underlying neoplastic process not excluded. 3. Stable ascending aortic aneurysm measuring 4.4 cm. 4. 3 mm left upper lobe pulmonary nodule too small to characterize but likely present on the prior ex am. Six-month follow-up CT scan recommended.
[2019-05-18] MEDS ORDERED: INSULIN ASPART (NovoLOG) 100 UNIT/ML VIAL SQ ONE (13:08)
[2019-05-18] MEDS ORDERED: IPRATROPIUM-ALBUTEROL 3 ML NEB INHALATION STA (13:27)
[2019-05-18] MEDS ORDERED: SODIUM CHLORIDE 0.9% 1,000 ML IV ONE (13:30)
[2019-05-18 15:13] LABS: Glucose,Whole Blood 584 mg/dL (75-99)
[2019-05-18] MEDS ORDERED: INSULIN REGULAR 100 UNIT in SODIUM CHLORIDE 0.9% 100 ML IV SCH (15:15)
[2019-05-18 16:04] LABS: Glucose,Whole Blood 445 mg/dL (75-99)
[2019-05-18] MEDS ORDERED: NITROGLYCERIN SL TABS 0.4 MG TAB SUBLINGUAL PRN (16:14)
[2019-05-18] MEDS ORDERED: ALPRAZolam 0.25 MG TAB PO PRN (16:17)
[2019-05-18] MEDS ORDERED: HYDROcodone/APAP 5-325MG 1 EACH TAB PO PRN (16:17)
[2019-05-18] MEDS ORDERED: TEMAZEPAM 15 MG CAP PO PRN (16:17)
[2019-05-18] MEDS ORDERED: IPRATROPIUM-ALBUTEROL 3 ML NEB INHALATION PRN (16:20)
[2019-05-18 16:43] LABS: Glucose,Whole Blood 385 mg/dL (75-99)
[2019-05-18 17:05] LABS: Glucose,Whole Blood 324 mg/dL (75-99)
[2019-05-18] MEDS ORDERED: INSULIN ASPART (NovoLOG) 100 UNIT/ML VIAL SQ SCH ×2 (17:30)
[2019-05-18 17:37] LABS: Glucose,Whole Blood 209 mg/dL (75-99)
[2019-05-18 19:44] LABS: Glucose,Whole Blood 135 mg/dL (75-99)
[2019-05-18] MEDS: IPRATROPIUM-ALBUTEROL 3 ML NEB INHALATION SCH (20:38)
[2019-05-18] MEDS: HEPARIN SODIUM,PORCINE 5,000 UNIT/ML 1 ML VIAL SQ SCH (20:48)
[2019-05-18] MEDS: ATORVASTATIN 20 MG TAB PO SCH (20:48)
[2019-05-18] MEDS: FLECAINIDE 50 MG TAB PO SCH (20:48)
[2019-05-18] MEDS: METOPROLOL TARTRATE 50 MG TAB PO SCH (20:48)
[2019-05-18 21:47] LABS: Glucose,Whole Blood 109 mg/dL (75-99)
--- NOTE | 2019-05-18 22:23 | HP ---
HISTORY AND PHYSICAL DATE OF SERVICE: 05/18/2019 CHIEF COMPLAINT: Shortness of breath and uncontrolled blood sugars. HISTORY OF PRESENT ILLNESS: This 78-year-old gentleman with a past medical history of multiple medical problems including history of GERD, history of syncope, history of DJD, history of cardiac valve replacement, cardiac catheterization, being by Dr. Gaytan in the outpatient setting was not feeling well over the past few days. The patient has increasing shortness of breath. The patient apparently went for fly fishing in [place] and the patient came back and apparently patient was food such as ice cream and the patient is on steroids also. The patient complained of shortness of breath. Because of lack of improvement, patient came to [facility] and was admitted for further evaluation and treatment. The blood sugars on admission was found to be 461. It went up to 584. There is no evidence of ketosis, hyperosmolar diabetic state was considered. The patient was admitted to the hospital for further evaluation and treatment. There is no history of as such and the patient also had evaluation for mesothelioma which was shown in the most recent PET scan and CT scan of the chest CTA done today was no evidence of pulmonary embolus but chronic pleural parenchymal changes with ascending aortic aneurysm also noted. There is no history of fever, rigors or chills. No history of headache, loss of consciousness, seizures. PAST MEDICAL HISTORY: History of mesothelioma, history of pleural plaques, history of GERD, DJD, syncope, history of cardiac valve replacement. MEDICATIONS: Prior to admission home medications are: 1. Prednisone 30 mg. 2. Nitrostat 0.4 mg sublingual p.r.n. 3. Lopressor 50 mg p.o. b.i.d. 4. Imdur 30 mg p.o. daily. 5. Tambocor 50 mg p.o. b.i.d. 6. Plavix 75 mg p.o. daily. 7. Lipitor 20 mg q.h.s. 8. Aspirin 81 mg p.o. daily. ALLERGIES: AMOXICILLIN. FAMILY HISTORY: History of breast, lung, esophageal, skin, pancreatic cancer. SOCIAL HISTORY: No history of smoking. No history of alcohol intake. REVIEW OF SYSTEMS: ENT: No diminished vision. No diminished hearing. CARDIOVASCULAR as mentioned earlier. RESPIRATORY: As mentioned earlier. GI no nausea or vomiting. no dysuria or hematuria. MUSCULOSKELETAL: As mentioned earlier. HEMATOLOGY/ONCOLOGY: As mentioned earlier. ENDOCRINE: Mentioned earlier. CONSTITUTIONAL: As mentioned earlier. DERMATOLOGY: Negative. RHEUMATOLOGY negative. PSYCHIATRY as mentioned earlier. PHYSICAL EXAMINATION: Alert and oriented x3. Pulse is 77, blood pressure 111/63, respirations 16, temperature 97.6, pulse ox 97% on 2 L. HEENT: Conjunctivae normal. NECK: No JVD. CARDIOVASCULAR: S1, S2 muffled. RESPIRATORY: Breath sounds diminished in the bases. Scattered rhonchi and crackles. ABDOMEN: Soft, nontender. No mass palpable. LEGS: No edema. No swelling. NERVOUS system as mentioned. Moves all four limbs. Lymphatics: No lymph nodes palpable in the neck, axillae or groin. SKIN: No ulcer, rashes or bleeding. JOINTS: No active deforming arthropathy. LAB STUDIES: This time shows next WBC 12.2, hemoglobin 14.8 sodium 130, potassium 4.5 Accu- Cheks noted. ASSESSMENT: 1. Diabetes mellitus type 2, new onset, uncontrolled with hyperosmolar diabetic state. 2. No evidence of ketosis. 3. Hyponatremia. 4. Increased WBC. 5. Shortness of breath possibly multifactorial. 6. Mesothelioma, right. 7. History of gastroesophageal reflux disease. 8. History of syncope. 9. History of cardiac valve replacement. 10.NO CODE, NO CPR, NO VENT. RECOMMENDATIONS AND DISCUSSION: This 78-year-old gentleman who presented with multiple medical issues, at this time, I recommend to continue current management and symptomatic treatment. I recommend insulin drip at this time to control the blood sugars. Once the sugars are controlled, I would recommend switch to sepsis to once daily long-acting insulin with supplemented by short-acting insulin. Otherwise, continue rest of medications. Consult Dr. Gaytan for shortness of breath, empiric bronchodilators. Guarded prognosis because of multiple complex medical issues. MMODL / IJN: [id number] / MTDD
[2019-05-18 23:12] LABS: Glucose,Whole Blood 113 mg/dL (75-99)
[2019-05-19 00:18] LABS: Glucose,Whole Blood 122 mg/dL (75-99)
[2019-05-19 01:21] LABS: Glucose,Whole Blood 124 mg/dL (75-99)
[2019-05-19 05:50] LABS: Glucose,Whole Blood 121 mg/dL (75-99)
[2019-05-19 06:36] LABS: Appearance,Urine Clear (Clear); Bilirubin,Urine Negative (Negative); Blood,Urine Negative (Negative); Color,Urine Yellow; Glucose,Urine (UA) Trace (Negative); Ketones,Urine Negative (Negative); Leukocyte Esterase,Urine Negative (Negative); Nitrite,Urine Negative (Negative); PH, Urine 5.5 (5.0-8.0); Protein,Urine Negative (Negative); Specific Gravity,Urine 1.024 (1.001-1.035); Urobilinogen,Urine <2.0 mg/dL (<2.0)
[2019-05-19 06:38] LABS: Anisocytosis Slight; Basophils % (A) 0 %; Eosinophils # (A) 0.1 k/uL (0-0.7); Eosinophils % (A) 1 %; HCT 39.3 % (39.0-53.0); HGB 13.3 gm/dL (13.0-17.5); Lymphocytes # (A) 1.2 k/uL (1.0-4.8); Lymphocytes % (A) 12 %; MCH 31.5 pg (25.0-35.0); MCHC 33.9 g/dL (31.0-37.0); Mean Platelet Volume 7.9; Monocytes # (A) 0.4 k/uL (0-1.0); Monocytes % (A) 4 %; Neutrophils % (A) 82 %; Platelet Count 146 k/uL (150-450); RBC 4.23 m/uL (4.30-5.90); RDW 16.3 % (11.5-15.5); WBC 9.8 k/uL (3.8-10.6)
[2019-05-19 06:50] LABS: Calcium 8.6 mg/dL (8.4-10.2); Potassium 3.8 mmol/L (3.5-5.1)
[2019-05-19 06:50] LABS: Glucose,Whole Blood 135 mg/dL (75-99)
[2019-05-19] MEDS: ASPIRIN 81 MG PO SCH (07:19)
[2019-05-19] MEDS: HEPARIN SODIUM,PORCINE 5,000 UNIT/ML 1 ML VIAL SQ SCH ×2 (07:19→21:48)
[2019-05-19] MEDS: METOPROLOL TARTRATE 50 MG TAB PO SCH ×2 (07:19→21:48)
[2019-05-19] MEDS: ISOSORBIDE MONONITRATE ER 30 MG TAB.ER.24H PO SCH (07:19)
[2019-05-19] MEDS: CLOPIDOGREL 75 MG TAB PO SCH (07:20)
[2019-05-19] MEDS: PANTOPRAZOLE 40 MG TABLET PO SCH (07:20)
[2019-05-19] MEDS: INSULIN ASPART (NovoLOG) 100 UNIT/ML VIAL SQ SCH ×4 (07:21→21:38)
[2019-05-19] MEDS: FLECAINIDE 50 MG TAB PO SCH ×2 (07:49→21:48)
[2019-05-19] MEDS: IPRATROPIUM-ALBUTEROL 3 ML NEB INHALATION SCH ×3 (07:56→20:59)
[2019-05-19] MEDS ORDERED: predniSONE 20 MG TAB PO SCH (10:30)
[2019-05-19 11:00] VITALS: BMI 23.5
[2019-05-19 11:36] LABS: Glucose,Whole Blood 285 mg/dL (75-99)
[2019-05-19] MEDS ORDERED: INSULIN DETEMIR (LEVEMIR) 100 UNIT/ML SYR SQ ONE (12:35)
--- NOTE | 2019-05-19 13:55 | P.CNPUL ---
History of Present Illness Consult date: 05/19/19 Requesting physician: Jamar Gaines Chief complaint: New onset diabetes mellitus type 2, known non-small cell lung cancer History of present illness: This is a 78-year-old white male patient who follows with Dr. 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 Patient was seen by Dr. Gaytan in March for complaints of nonproductive cough, and dyspnea, and he was started on prednisone 30 mg daily with improvement in his symptoms. Last couple weeks is dose of steroids was dropped down to 20 mg daily. 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 He states he noticed his breathing had worsened, he was more short of breath and he attributed it to alltitude. In addition patient had poor appetite, increased urination, weakness, and thirst. Denied any fever or chills. Did have some cough, with no significant phlegm production. He decided to cut his vacation short and return home. He came into the emergency department on 05/18/2019, where he was found to be hyperglycemic, with the capillary blood sugar of 461. He was tachycardic on the monitor, without acute ST or T-wave abnormalities, chest x-ray showed no acute abnormality, computed tomography scan of the chest showed chronic asbestos related right lower lung changes. Lab work showed a white blood cell count of 12.6, hemoglobin was 14.8, d-dimer was mildly elevated to 0.89, serum sodium was 136, potassium is 4.2, chloride is 98, CO2 is 26, BUN is 19, creatinine is 1.2, serum glucose was 461, troponin negative 1, urinalysis with trace glucose, negative ketones, no evidence of infection. he was started on insulin infusion, room air pulse ox 96%, no significant cough or congestion, some coarse crackles at bilateral bases, afebrile, hemodynamically stable. Review of Systems All systems: negative Constitutional: Denies chills, Denies fever Eyes: denies blurred vision, denies pain Ears, nose, mouth and throat: Denies headache, Denies sore throat Cardiovascular: Denies chest pain, Denies shortness of breath Respiratory: Reports cough with sputum, Reports dyspnea, Denies cough Gastrointestinal: Denies abdominal pain, Denies diarrhea, Denies nausea, Denies vomiting Musculoskeletal: Denies myalgias Integumentary: Denies pruritus, Denies rash Neurological: Denies numbness, Denies weakness Psychiatric: Denies anxiety, Denies depression Endocrine: Denies fatigue, Denies weight change Past Medical History Past Medical History: Cancer, GERD/Reflux, Osteoarthritis (OA), Syncope Additional Past Medical History / Comment(s): had past chest pressure radiating to left shoulder/neck/face/head, murmur, sinus,glasses, [place],upper dentures/lower partial, having difficulty with activity and SOB. asbestos exposure and pleural based lung mass. History of Any Multi-Drug Resistant Organisms: None Reported Past Surgical History: Cardiac Valve Replacement, Heart Catheterization, Hernia Repair, Tonsillectomy Additional Past Surgical History / Comment(s): kate, aortic valve replacement 03/2010, nasal surg x3 , rt cataract, colonoscopy, clay inguinal hernia Past Anesthesia/Blood Transfusion Reactions: No Reported Reaction Past Psychological History: No Psychological Hx Reported Smoking Status: Never smoker Past Alcohol Use History: None Reported Additional Past Alcohol Use History / Comment(s): quit smoking 1950 smoked 5 years 1/2 ppd Past Drug Use History: None Reported - Past Family History Mother Family Medical History: No Reported History Father Family Medical History: Cancer Additional Family Medical History / Comment(s): heart problems Sister(s) Family Medical History: Cancer Additional Family Medical History / Comment(s): famaily hx of cancer- breast, lung, esophageal, skin, pancareatic. Medications and Allergies Home Medications Medication Instructions Recorded Confirmed Type Flecainide [Tambocor] 50 mg PO BID 07/28/14 05/18/19 History Metoprolol Tartrate [Lopressor] 50 mg PO BID 07/28/14 05/18/19 History Aspirin 81 mg PO DAILY chew 12/08/16 05/18/19 Rx Clopidogrel [Plavix] 75 mg PO DAILY #90 tab 12/08/16 05/18/19 Rx Nitroglycerin Sl Tabs [Nitrostat] 0.4 mg SUBLINGUAL Q5M PRN #25 tab 12/08/16 05/18/19 Rx Atorvastatin [Lipitor] 20 mg PO HS 05/17/17 05/18/19 History Isosorbide Mononitrate ER [Imdur] 30 mg PO DAILY 06/26/18 05/18/19 History predniSONE 30 mg PO DAILY 05/18/19 05/18/19 History Allergies Allergy/AdvReac Type Severity Reaction Status Date / Time amoxicillin [Amoxicillin] Allergy Rash/Hives Verified 05/18/19 11:18 Physical Exam Vitals: Vital Signs Temp Pulse Pulse Resp BP BP Pulse Ox 05/19/19 12:20 79 05/19/19 12:11 77 05/19/19 08:20 96 05/19/19 08:05 82 05/19/19 07:56 79 96 05/19/19 07:19 97.7 F 71 16 117/67 97 05/19/19 01:14 97.9 F 57 L 12 91/60 95 05/18/19 20:52 80 05/18/19 20:38 78 97 05/18/19 19:28 97.8 F 80 18 97/52 94 L 05/18/19 15:01 97.6 F 77 16 111/66 97 05/18/19 14:00 98 F 84 20 97/70 97 05/18/19 13:39 77 Intake and Output 05/18/19 05/19/19 05/19/19 22:59 06:59 14:59 Intake Total 597.858 Balance 597.858 Intake: Intake, IV Titration 57.858 Amount Insulin Regular 100 unit 57.858 In Sodium Chloride 0.9% 100 ml @ Titrate IV .Q0M [facility] Rx#:[id number] Oral 540 Other: Voiding Method Toilet Toilet # Voids 1 3 1 Weight 68.039 kg GENERAL EXAM: Alert, pleasant, 78-year-old white male comfortable in no apparent distress. HEAD: Normocephalic/atraumatic. EYES: Normal reaction of pupils, equal size. Conjunctiva pink, sclera white. NOSE: Clear with pink turbinates. THROAT: No erythema or exudates. NECK: No masses, no JVD, no thyroid enlargement, no adenopathy. CHEST: No chest wall deformity. Symmetrical expansion. LUNGS: Equal air entry with coarse crackles CVS: Regular rate and rhythm, normal S1 and S2, no gallops, no murmurs, no rubs ABDOMEN: Soft, nontender. No hepatosplenomegaly, normal bowel sounds, no guarding or rigidity. EXTREMITIES: No clubbing, no edema, no cyanosis, 2+ pulses and upper and lower extremities. MUSCULOSKELETAL: Muscle strength and tone normal. SPINE: No scoliosis or deformity SKIN: No rashes CENTRAL NERVOUS SYSTEM: Alert and oriented -3. No focal deficits, tone is normal in all 4 extremities. PSYCHIATRIC: Alert and oriented -3. Appropriate affect. Intact judgment and insight. Results - Laboratory Findings CBC and BMP: 05/19/19 05:36 05/19/19 05:36 PT/INR, D-dimer PT 10.0 sec (9.0-12.0) 05/18/19 10:58 INR 0.9 (<1.2) 05/18/19 10:58 D-Dimer 0.89 mg/L FEU (<0.60) H 05/18/19 10:58 Abnormal lab findings: Abnormal Labs 05/18/19 05/18/19 05/18/19 10:58 10:58 10:58 WBC 12.6 H RBC RDW 17.3 H Plt Count Neutrophils # 10.6 H D-Dimer 0.89 H Sodium 136 L Glucose 461 H POC Glucose (mg/dL) Total Bilirubin 2.2 H AST 16 L Urine Glucose (UA) 05/18/19 05/18/19 05/18/19 15:09 16:00 16:32 WBC RBC RDW Plt Count Neutrophils # D-Dimer Sodium Glucose POC Glucose (mg/dL) 584 H 445 H 385 H Total Bilirubin AST Urine Glucose (UA) 05/18/19 05/18/19 05/18/19 17:03 17:32 19:39 WBC RBC RDW Plt Count Neutrophils # D-Dimer Sodium Glucose POC Glucose (mg/dL) 324 H 209 H 135 H Total Bilirubin AST Urine Glucose (UA) 05/18/19 05/18/19 05/19/19 21:44 23:09 00:12 WBC RBC RDW Plt Count Neutrophils # D-Dimer Sodium Glucose POC Glucose (mg/dL) 109 H 113 H 122 H Total Bilirubin AST Urine Glucose (UA) 05/19/19 05/19/19 05/19/19 01:18 05:35 05:36 WBC RBC 4.23 L RDW 16.3 H Plt Count 146 L Neutrophils # 8.0 H D-Dimer Sodium Glucose POC Glucose (mg/dL) 124 H Total Bilirubin AST Urine Glucose (UA) Trace H 05/19/19 05/19/19 05/19/19 05:36 05:46 06:47 WBC RBC RDW Plt Count Neutrophils # D-Dimer Sodium Glucose 120 H POC Glucose (mg/dL) 121 H 135 H Total Bilirubin AST Urine Glucose (UA) 05/19/19 11:27 WBC RBC RDW Plt Count Neutrophils # D-Dimer Sodium Glucose POC Glucose (mg/dL) 285 H Total Bilirubin AST Urine Glucose (UA) - Diagnostic Findings Chest x-ray: report reviewed, image reviewed CT scan - chest: report reviewed, image reviewed Assessment and Plan Plan: Assessment: #1. Dyspnea, of unknown etiology, chest x-ray and CT chest showed stable findings of right lower lung asbestos related changes, no evidence of pneumonia #2. Squamous cell lung cancer of the right lung, status post SBRT #3. Long course of oral steroids for radiation induced pneumonitis with steroid-induced hyperglycemia #4. 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 Atrial fibrillation, tree of #6. 2 sleep apnea syndrome #7. Diverticulitis #8. History of aortic valve replacement #9. Brief history of smoking, quit 50 years ago Plan: Chest x-ray CT chest has been reviewed by Dr. Wheatley, patient was seen in evaluated by Dr. Wheatley, no acute changes on the radiographic studies, no evidence of pneumonia, will restart the patient back on low-dose prednisone, continue with insulin infusion. I performed a history & physical examination of the patient and discussed their management with my nurse practitioner, Kristina Fierro. I reviewed the nurse practitioner's note and agree with the documented findings and plan of care. Lung sounds are positive for diminished breath soiunds The findings and the impression was discussed with the patient. I attest to the documentation by the nurse practitioner. Time with Patient: Greater than 30
[2019-05-19 16:56] LABS: Glucose,Whole Blood 387 mg/dL (75-99)
[2019-05-19] MEDS: metFORMIN 500 MG TAB PO SCH (17:39)
--- NOTE | 2019-05-19 20:20 | PN ---
PROGRESS NOTE DATE OF SERVICE: 05/19/2019. This 78-year-old gentleman who was admitted with uncontrolled blood sugars and hyperosmolar diabetic is being closely monitored at this time. The patient received at least 8 units of regular insulin by drip since yesterday. Sugars are like 100, but currently the blood sugar is also going up in 200s. Dr. Wheatley is following the patient closely. No chest pain. No palpitations. No fever. EXAM: Alert and oriented x3. Pulse 78, blood pressure 93/51, respirations 16, temperature 97.4, pulse ox 98% on room air. HEENT: Conjunctivae normal. NECK: No jugular venous distention. CARDIOVASCULAR: S1, S2. RESPIRATORY: Breath sounds diminished in the bases. No rhonchi, no crackles. ABDOMEN: Soft, nontender. LEGS: No edema. NERVOUS SYSTEM: No focal deficits. LAB STUDIES: At this time Accu-Cheks noted. Other labs are noted. ASSESSMENT: 1. Diabetes mellitus type 2 new onset, uncontrolled with hyperosmolar diabetic state. 2. No evidence of ketosis. 3. Hyponatremia. 4. Increased WBC. 5. Shortness of breath, possibly multifactorial. 6. History of mesothelioma on the right. 7. History of gastroesophageal reflux disease. 8. History of syncope. 9. History of cardiac valve replacement. 10.NO CODE, NO CPR, NO VENT. RECOMMENDATIONS AND DISCUSSION: In this 78-year-old gentleman who presented with multiple complex medical issues, we will monitor the patient closely, continue the current management and symptomatic treatment. Otherwise, we will initiate Lantus. See orders for details and continue the coverage. Prognosis guarded because of multiple complex medical issues. Further recommendations to follow. I would also recommend metformin also. MMODL / IJN: [id number] /
[2019-05-19 20:24] LABS: Glucose,Whole Blood 452 mg/dL (75-99)
[2019-05-19] MEDS ORDERED: INSULIN DETEMIR (LEVEMIR) 100 UNIT/ML SYR SQ SCH ×3 (21:00→21:30)
[2019-05-19] MEDS ORDERED: INSULIN ASPART (NovoLOG) 100 UNIT/ML VIAL SQ ONE (21:28)
[2019-05-19] MEDS: ATORVASTATIN 20 MG TAB PO SCH (21:48)
[2019-05-20 00:07] LABS: Glucose,Whole Blood 286 mg/dL (75-99)
[2019-05-20 04:54] LABS: Glucose,Whole Blood 42 mg/dL (75-99)
[2019-05-20 05:11] LABS: Glucose,Whole Blood 70 mg/dL (75-99)
[2019-05-20 06:51] LABS: Glucose,Whole Blood 115 mg/dL (75-99)
[2019-05-20] MEDS: INSULIN ASPART (NovoLOG) 100 UNIT/ML VIAL SQ SCH ×2 (06:57→12:02)
[2019-05-20 07:32] VITALS: BP 112/67; RESP 16; TEMP 97.6
[2019-05-20] MEDS: METOPROLOL TARTRATE 50 MG TAB PO SCH (07:52)
[2019-05-20] MEDS: PANTOPRAZOLE 40 MG TABLET PO SCH (07:52)
[2019-05-20] MEDS: FLECAINIDE 50 MG TAB PO SCH (07:53)
[2019-05-20] MEDS: CLOPIDOGREL 75 MG TAB PO SCH (07:53)
[2019-05-20] MEDS: metFORMIN 500 MG TAB PO SCH (07:53)
[2019-05-20] MEDS: ISOSORBIDE MONONITRATE ER 30 MG TAB.ER.24H PO SCH (07:53)
[2019-05-20] MEDS: ASPIRIN 81 MG PO SCH (07:53)
[2019-05-20] MEDS: HEPARIN SODIUM,PORCINE 5,000 UNIT/ML 1 ML VIAL SQ SCH (07:54)
[2019-05-20] MEDS: IPRATROPIUM-ALBUTEROL 3 ML NEB INHALATION SCH (08:45)
[2019-05-20 08:59] VITALS: PULSE 74
[2019-05-20] MEDS ORDERED: INSULIN DETEMIR (LEVEMIR) 100 UNIT/ML SYR SQ SCH (09:00)
[2019-05-20] MEDS ORDERED: predniSONE 10 MG TAB PO SCH (09:00)
[2019-05-20 09:22] LABS: Anisocytosis Slight; Basophils % (A) 0 %; Eosinophils # (A) 0.1 k/uL (0-0.7); Eosinophils % (A) 1 %; HCT 37.9 % (39.0-53.0); HGB 12.6 gm/dL (13.0-17.5); Lymphocytes # (A) 1.2 k/uL (1.0-4.8); Lymphocytes % (A) 11 %; MCH 31.1 pg (25.0-35.0); MCHC 33.2 g/dL (31.0-37.0); MCV 93.7 fL (80.0-100.0); Mean Platelet Volume 7.9; Monocytes # (A) 0.5 k/uL (0-1.0); Monocytes % (A) 5 %; Neutrophils # (A) 8.5 k/uL (1.3-7.7); Neutrophils % (A) 81 %; Platelet Count 169 k/uL (150-450); RBC 4.05 m/uL (4.30-5.90); RDW 16.1 % (11.5-15.5); WBC 10.5 k/uL (3.8-10.6)
[2019-05-20 09:51] LABS: Calcium 8.9 mg/dL (8.4-10.2)
[2019-05-20 10:34] LABS: Hemoglobin A1C 12.3 % (4.0-6.0)
[2019-05-20 11:24] LABS: Glucose,Whole Blood 99 mg/dL (75-99)
--- NOTE | 2019-05-20 14:11 | P.PN ---
Subjective Progress Note Date: 05/20/19 Principal diagnosis: New-onset diabetes mellitus type 2, known history of non-small cell lung cancer This is a 78-year-old white male patient who 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 Patient was seen by Dr. Gaytan in March for complaints of nonproductive cough, and dyspnea, and he was started on prednisone 30 mg daily with improvement in his symptoms. Last couple weeks is dose of steroids was dropped down to 20 mg daily. 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 He states he noticed his breathing had worsened, he was more short of breath and he attributed it to alltitude. In addition patient had poor appetite, increased urination, weakness, and thirst. Denied any fever or chills. Did have some cough, with no significant phlegm production. He decided to cut his vacation short and return home. He came into the emergency department on 05/18/2019, where he was found to be hyperglycemic, with the capillary blood sugar of 461. He was tachycardic on the monitor, without acute ST or T-wave abnormalities, chest x-ray showed no acute abnormality, computed tomography scan of the chest showed chronic asbestos related right lower lung changes. Lab work showed a white blood cell count of 12.6, hemoglobin was 14.8, d-dimer was mildly elevated to 0.89, serum sodium was 136, potassium is 4.2, chloride is 98, CO2 is 26, BUN is 19, creatinine is 1.2, serum glucose was 461, troponin negative 1, urinalysis with trace glucose, negative ketones, no evidence of infection. he was started on insulin infusion, room air pulse ox 96%, no significant cough or congestion, some coarse crackles at bilateral bases, afebrile, hemodynamically stable. On 05/20/2019 patient seen in follow-up on medical surgical floor. Doing well, no specific complaints, no shortness of breath, no chest pain, no palpitations, no fever. Blood culture showed no growth, today's labs have been reviewed, white blood cell count was 10.5, hemoglobin is 12.6, electrolytes and renal profile were all within normal limits. Blood sugars are better controlled, patient was initiated on basal insulin in the form of Levemir, and sugars did improve. Vital signs are stable, no acute events overnight, and patient is being discharge home today. Objective - Vital Signs Vital signs: Vital Signs Temp 97.6 F 05/20/19 07:00 Pulse 74 05/20/19 08:57 Resp 16 05/20/19 07:00 BP 112/67 05/20/19 07:00 Pulse Ox 96 05/20/19 08:46 Intake & Output 05/19/19 05/20/19 05/20/19 18:59 06:59 18:59 Intake Total 540 870 Balance 540 870 Weight 68.039 kg Intake: Oral 540 870 Other: Voiding Method Toilet Toilet Toilet # Voids 1 0 1 - Exam GENERAL EXAM: Alert, pleasant, 78-year-old white male comfortable in no apparent distress. HEAD: Normocephalic/atraumatic. EYES: Normal reaction of pupils, equal size. Conjunctiva pink, sclera white. NOSE: Clear with pink turbinates. THROAT: No erythema or exudates. NECK: No masses, no JVD, no thyroid enlargement, no adenopathy. CHEST: No chest wall deformity. Symmetrical expansion. LUNGS: Equal air entry with coarse crackles CVS: Regular rate and rhythm, normal S1 and S2, no gallops, no murmurs, no rubs ABDOMEN: Soft, nontender. No hepatosplenomegaly, normal bowel sounds, no guardi ng or rigidity. EXTREMITIES: No clubbing, no edema, no cyanosis, 2+ pulses and upper and lower extremities. MUSCULOSKELETAL: Muscle strength and tone normal. SPINE: No scoliosis or deformity SKIN: No rashes CENTRAL NERVOUS SYSTEM: Alert and oriented -3. No focal deficits, tone is normal in all 4 extremities. PSYCHIATRIC: Alert and oriented -3. Appropriate affect. Intact judgment and insight. - Labs CBC & Chem 7: 05/20/19 08:38 05/20/19 08:38 Labs: Abnormal Lab Results - Last 24 Hours (Table) 05/19/19 05/19/19 05/19/19 Range/Units 05:36 16:47 20:21 RBC (4.30-5.90) m/uL Hgb (13.0-17.5) gm/dL Hct (39.0-53.0) % RDW (11.5-15.5) % Neutrophils # (1.3-7.7) k/uL POC Glucose (mg/dL) 387 H 452 H (75-99) mg/dL Hemoglobin A1c 12.3 H (4.0-6.0) % 05/20/19 05/20/19 05/20/19 Range/Units 00:05 04:45 05:06 RBC (4.30-5.90) m/uL Hgb (13.0-17.5) gm/dL Hct (39.0-53.0) % RDW (11.5-15.5) % Neutrophils # (1.3-7.7) k/uL POC Glucose (mg/dL) 286 H 42 L 70 L (75-99) mg/dL Hemoglobin A1c (4.0-6.0) % 05/20/19 05/20/19 Range/Units 06:49 08:38 RBC 4.05 L (4.30-5.90) m/uL Hgb 12.6 L (13.0-17.5) gm/dL Hct 37.9 L (39.0-53.0) % RDW 16.1 H (11.5-15.5) % Neutrophils # 8.5 H (1.3-7.7) k/uL POC Glucose (mg/dL) 115 H (75-99) mg/dL Hemoglobin A1c (4.0-6.0) % Microbiology - Last 24 Hours (Table) 05/18/19 10:58 Blood Culture - Preliminary Blood No Growth after 48 hours Assessment and Plan Plan: Assessment: #1. Dyspnea, of unknown etiology, chest x-ray and CT chest showed stable findings of right lower lung asbestos related changes, no evidence of pneumonia #2. Squamous cell lung cancer of the right lung, status post SBRT #3. Long course of oral steroids for radiation induced pneumonitis with steroid-induced hyperglycemia #4. 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 Atrial fibrillation, tree of #6. 2 sleep apnea syndrome #7. Diverticulitis #8. History of aortic valve replacement #9. Brief history of smoking, quit 50 years ago Plan: Patient is stable from pulmonary perspective, no acute events overnight, no complaints of shortness of breath, no fever or chills, room air pulse ox is 96%, blood sugars are better controlled, with addition of Levemir, patient can continue on the short course of daily prednisone 10 mg for a few more days. Patient is being discharged home today, he can follow up with Dr. Lake in the office in the 7-10 days. I performed a history & physical examination of the patient and discussed their management with my nurse practitioner, Kristina Fierro. I reviewed the nurse practitioner's note and agree with the documented findings and plan of care. Lung sounds are positive for diminished breath soiunds The findings and the impression was discussed with the patient. I attest to the documentation by the nurse practitioner. Time with Patient: Less than 30
--- NOTE | 2019-05-21 | DS ---
DISCHARGE SUMMARY DATE OF SERVICE: 05/20/2019 FINAL DIAGNOSES: 1. Diabetes mellitus, type 2, new onset, uncontrolled with hyperglycemia with hyperosmolar diabetic state. 2. No evidence of ketosis. 3. Hyponatremia. 4. Increased white count. 5. Shortness of breath, possibly multifactorial. 6. History of mesothelioma on the right. 7. History of gastroesophageal reflux disease. 8. History of syncope. 9. History of cardiac valve replacement. 10.NO CODE, NO CPR, NO VENT. DISCHARGE DISPOSITION: The patient will be discharged in stable condition with guarded prognosis. HISTORY OF PRESENT ILLNESS: This 78-year-old gentleman was admitted with uncontrolled blood sugars and diabetes mellitus. Sugars were more than 584. There was no evidence of ketosis. The patient was on steroids as well as taking some sugary food, according to him, and the patient was started on insulin drip and improved significantly. He was seen by Dr. Wheatley and the blood sugars were controlled. I also recommended outpatient followup with Endocrine. The patient is being discharged in stable condition with guarded prognosis. DISCHARGE ADVICE AND MEDICATIONS: 1. Diet is cardiac. 2. Activity limited until followup. 3. Follow up with Dr. Gaytan in 2-3 days. 4. Follow up with Dr. Moreno in 2-3 days. 5. Imdur 30 mg p.o. daily. 6. Lipitor 20 mg at bedtime. 7. Lopressor 50 mg p.o. b.i.d. 8. Prednisone 5 mg p.o. daily. 9. Tambocor 50 mg p.o. b.i.d. 10.Aspirin 81 mg daily. 11.Glucophage 500 mg p.o. b.i.d. 12.Levemir 20 units subcutaneously b.i.d. Hold if the Accu-Chek is less than 150. 13.Nitro 0.4 sublingually p.r.n. 14.Plavix 75 mg p.o. daily. 15.Prednisone 10 mg daily for 5 days. 16.ProAir 2 puffs q.6. MMPARESHL / YINGN: [id number] /
== END 2019-05-20 13:49 ==
LOC: EC 10:37 → 4SSUR 13:30
PROVIDERS: ADMIT Internal Medicine; ATTEND Internal Medicine
DX: E09.65 Drug or chemical induced diabetes mellitus with hyperglycemia (principal); E09.00 Drug or chemical induced diabetes mellitus with hyperosmolarity without nonketotic hyperglycemic-hyperosmolar coma (NKHHC); T38.0X5A Adverse effect of glucocorticoids and synthetic analogues, initial encounter; C34.91 Malignant neoplasm of unspecified part of right bronchus or lung; J92.0 Pleural plaque with presence of asbestos; C45.7 Mesothelioma of other sites; I71.2 Thoracic aortic aneurysm, without rupture; K21.9 Gastro-esophageal reflux disease without esophagitis; M19.90 Unspecified osteoarthritis, unspecified site; H91.90 Unspecified hearing loss, unspecified ear; D72.829 Elevated white blood cell count, unspecified; I48.91 Unspecified atrial fibrillation; G47.30 Sleep apnea, unspecified; K57.92 Diverticulitis of intestine, part unspecified, without perforation or abscess without bleeding; E87.1 Hypo-osmolality and hyponatremia; Z79.02 Long term (current) use of antithrombotics/antiplatelets; Z79.82 Long term (current) use of aspirin; Z79.52 Long term (current) use of systemic steroids; Z79.899 Other long term (current) drug therapy; Z88.0 Allergy status to penicillin; Z86.79 Personal history of other diseases of the circulatory system; Z95.2 Presence of prosthetic heart valve; Z87.891 Personal history of nicotine dependence; Z77.090 Contact with and (suspected) exposure to asbestos; Z85.118 Personal history of other malignant neoplasm of bronchus and lung; Z92.3 Personal history of irradiation; Z98.41 Cataract extraction status, right eye; Z82.49 Family history of ischemic heart disease and other diseases of the circulatory system; Z80.3 Family history of malignant neoplasm of breast; Z80.1 Family history of malignant neoplasm of trachea, bronchus and lung; Z80.0 Family history of malignant neoplasm of digestive organs; Z80.8 Family history of malignant neoplasm of other organs or systems
CPT/HCPCS: 96361 ×3; 96372 ×3; 96360; 99285; 36415; 94640 ×4; 94760; 93005; 85379; 80053; 80048 ×2; 83735; 84484; 85025 ×3; 85610; 85730; 81003; 87040; 83036; 71046; 71275; G0378 ×3; J1644 ×3; J7512 ×2; Q9967; 96366

== ENCOUNTER → 2019-08-30 | Outpatient (CLI) | payer MEDICARE, BC ==
[2019-08-30 15:43] LABS: African American GFR (CKD) 73.1 (60.0-200.0); Albumin 4.7 g/dL (3.80-4.90); Albumin/Globulin Ratio 2.14 (1.60-3.17); Anion Gap 10.3 mmol/L (4.00-12.00); BUN/Creat Ratio 20.91 Ratio (12.00-20.00); Calcium 10.1 mg/dL (8.7-10.3); Carbon Dioxide 28.7 mmol/L (21.6-31.8); Chol/HDL Ratio 2.25; Globulin 2.2 g/dL (1.6-3.3); LDL Cholesterol,Calculated 55.8 mg/dL (0.0-131.0); Potassium 4.4 mmol/L (3.5-5.5); Total Bilirubin 0.7 mg/dL (0.3-1.2); Total Protein 6.9 g/dL (6.2-8.2); VLDL Calculation 33.2 mg/dL (5.00-40.00)
[2019-08-30 20:33] LABS: Hemoglobin A1C 6.5 % (4.0-6.0)
== END | disposition home or self-care (01) ==
LOC: LABWHC1 08:08
PROVIDERS: ATTEND Internal Medicine Endocrinology, Diabetes & Metabolism
DX: E11.65 Type 2 diabetes mellitus with hyperglycemia (principal)
CPT/HCPCS: 36415; 80053; 80061; 82043; 82570; 83036; 84443

== ENCOUNTER → 2019-09-06 | Outpatient (CLI) | payer MEDICARE, BC ==
--- NOTE | 2019-09-06 11:12 | CT ---
EXAMINATION TYPE: CT chest w con DATE OF EXAM: 09/06/2019 COMPARISON: 01/14/2019 HISTORY: Malignant neoplasm of lung CT DLP: 261.10 mGycm Automated exposure control for dose reduction was used. CONTRAST: CT scan of the chest is performed with IV Contrast, patient injected with 100 ml mL of Isovue 300. FINDINGS: LUNGS: There is persistent circumferential pleural thickening throughout the right hemithorax with as sociated volume loss. Areas of increased pleural thickening noted along the right lateral chest wall and right apical region. There is of scattered pleural calcifications seen. Correlate for mesotheliom a. There is increased patchy infiltrate within the right upper lobe may reflect pneumonia. Mild hyper inflation of the left lung noted. Subpleural fibrotic changes seen at the lung bases. Left-sided pleu ral calcifications also redemonstrated. MEDIASTINUM: There are no greater than 1 cm hilar or mediastinal lymph nodes. No pericardial effusi on is seen. Thoracic aorta is of normal caliber. The heart is not enlarged. UPPER ABDOMEN: No significant abnormality appreciated. OTHER: No additional significant abnormality is seen. IMPRESSION: 1. Persistent and somewhat progressive circumferential pleural thickening throughout the right hemith orax felt to be compatible with mesothelioma. Increasing patchy infiltrate right apical region may re flect underlying pneumonia. Correlate clinically.
== END ==
LOC: RADCTMAIN 10:00
PROVIDERS: ATTEND Internal Medicine Critical Care Medicine
DX: C34.90 Malignant neoplasm of unspecified part of unspecified bronchus or lung (principal); R91.8 Other nonspecific abnormal finding of lung field; Z88.1 Allergy status to other antibiotic agents
CPT/HCPCS: 71260; 96372; Q9967; G0463; J1040; 99214

== ENCOUNTER → 2019-09-19 | Outpatient (CLI) | payer MEDICARE, BC ==
--- NOTE | 2019-09-19 15:04 | CT ---
EXAMINATION TYPE: CT abdomen w con DATE OF EXAM: 09/19/2019 COMPARISON: CT chest and abdomen January 14, 2019. PET/CT June 02, 2018 HISTORY: Malignant neoplasm. History of mesothelioma. CT DLP: 484.2 mGycm, Automated Exposure Control for Dose Reduction was Utilized. CONTRAST: CT scan of the abdomen is performed without oral but with IV Contrast, patient injected with 80ml mL of Isovue 300. FINDINGS: LUNG BASES: Calcified pleural plaques bilaterally redemonstrated. Persistent small right pleural flui d collection with areas of irregular pleural thickening throughout the right lung base redemonstrated . Mild/moderate pleural/parenchymal scarring throughout the visualized lung bases. LIVER/GB: No significant abnormality is appreciated. PANCREAS: No significant abnormality is seen. SPLEEN: No significant abnormality is seen. ADRENALS: No significant abnormality is seen. KIDNEYS: No significant abnormality is seen. BOWEL: Occasional left-sided colonic diverticula. LYMPH NODES: No greater than 1cm abdominal lymph nodes are appreciated. OSSEOUS STRUCTURES: Moderate to severe multilevel spurring in the spine. Facet arthropathy lower lumb ar levels. OTHER: Mild calcified plaque of the aorta with slight ectasia coronal image 43 redemonstrated.. IMPRESSION: No suspicious new mass or adenopathy in the abdomen to suggest metastatic malignancy.
== END | disposition home or self-care (01) ==
LOC: RADCTMAIN 13:30
PROVIDERS: ATTEND Radiology Radiation Oncology
DX: C34.11 Malignant neoplasm of upper lobe, right bronchus or lung (principal); Z92.3 Personal history of irradiation; Z87.891 Personal history of nicotine dependence
CPT/HCPCS: 82565; 84520; 74160; 36415; Q9967

== ENCOUNTER 2019-11-27 08:52 | Day surgery (SDC) | payer MEDICARE, BC ==
[2019-11-27 09:36] LABS: Mean Platelet Volume 7.2; Platelet Count 208 k/uL (150-450)
[2019-11-27 09:50] LABS: Prothrombin Time 10.6 sec (9.0-12.0)
[2019-11-27 09:57] VITALS: TEMP 97.8
[2019-11-27 10:07] LABS: Glucose,Whole Blood 168 mg/dL (75-99)
--- NOTE | 2019-11-27 11:58 | XR ---
EXAMINATION TYPE: XR chest 1V portable DATE OF EXAM: 11/27/2019 COMPARISON: Prior chest x-ray 05/18/2019 HISTORY: Status post right upper lobe lung biopsy TECHNIQUE: Single frontal view of the chest is obtained. FINDINGS: Pleural parenchymal changes are similar to prior exam. Patient is post median sternotomy. There is volume loss in the right hemithorax. No evident pneumothorax or pleural effusion. IMPRESSION: No evident complication status post lung biopsy.
[2019-11-27 12:10] VITALS: RESP 18
[2019-11-27 14:00] VITALS: BP 118/70; PULSE 83
--- NOTE | 2019-11-27 14:22 | XR ---
EXAMINATION TYPE: XR chest 1V portable DATE OF EXAM: 11/27/2019 COMPARISON: Chest x-ray same dated earlier time HISTORY: Post right lobe lung biopsy TECHNIQUE: Single frontal view of the chest is obtained. FINDINGS: Interval change. IMPRESSION: No evident complication status post lung biopsy.
--- NOTE | 2019-11-27 15:34 | CT ---
EXAMINATION TYPE: CT biopsy lung RT DATE OF EXAM: 11/27/2019 HISTORY: Lung mass COMPARISON: CT 09/06/2019 Maximal barrier technique was utilized. The skin overlying a suitable path to the lytic bone lesion and pleural thickening in the right upper lobe was localized using CT and the overlying skin was prep ped and draped. Lidocaine used for local anesthesia. A skin alison made with a scalpel. Using CT shantelle dance, access was gained to the lesion with a 25-gauge needle followed by a 21-gauge needle. Aspirat ed specimen submitted to cytology. Core specimen obtained with a 20-gauge core needle. 3 passes were performed in all. Following the procedure no immediate complications. The patient is discharged in stable condition. Hemostasis achieved. IMPRESSION: SUCCESSFUL CT GUIDED FINE-NEEDLE ASPIRATION AND CORE BIOPSY of the right pleura region of the lytic a bnormality of the anterior fourth rib. PATHOLOGY PENDING. THIS PROCEDURE WAS PERFORMED BY THE UNDER SIGNED.
== END 2019-11-27 14:27 | disposition home or self-care (01) ==
LOC: RADPROMAIN 08:52
PROVIDERS: ATTEND Radiology Radiation Oncology
DX: C45.7 Mesothelioma of other sites (principal); C80.1 Malignant (primary) neoplasm, unspecified
CPT/HCPCS: 36415; 71045; 77012; 85049; 85610; 88173; 88305; 88341; 88342

== ENCOUNTER → 2019-12-20 | Outpatient (CLI) | payer MEDICARE, BC ==
--- NOTE | 2019-12-24 11:24 | PE ---
EXAMINATION TYPE: PET CT fusion skull to thigh DATE OF EXAM: 12/20/2019 COMPARISON: CT chest dated 09/06/[address] right lung biopsy dated 11/27/2019 HISTORY: Lung cancer, newly diagnosed mesothelioma, recent lung biopsy and 11/27/2019. 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 TECHNIQUE: Following the intravenous administration of 12.74 mCi of F-18 FDG, whole body images are performed from the skull base to the midthigh. Images are reviewed on the computer in the coronal, a xial, and sagittal planes. Reconstructed rotating images are created on independent workstation and reviewed on the computer. A localization and attenuation correction CT is performed in conjunction with the PET scan. SCAN: Initial. Treatment planning. FINDINGS: Mediastinal background: 2.18 Abdominal background: 3.0 SKULL BASE AND NECK: No suspicious hypermetabolic uptake. CHEST, MEDIASTINUM, AND HILAR REGION: Worsening circumferential pleural thickening of the right hemit horax demonstrates a maximum SUV of 5.66. ABDOMEN AND PELVIS: No suspicious hypermetabolic uptake. OSSEOUS STRUCTURES: No suspicious hypermetabolic uptake. OTHER CT: There are moderate degenerative changes of the cervical spine. No supraclavicular adenopath y is seen. Mild aneurysmal dilatation of the ascending thoracic aorta measuring 4.2 cm. Moderate belle nary artery calcifications and prior coronary artery bypass grafting. Few pleural calcifications and pleural plaquing of the left lung. Right hemithorax volume loss and rightward mediastinal shift. Mult ifocal left-sided atelectasis, underlying moderate emphysematous change, and multifocal bibasilar sca rring. Unenhanced viscera of the abdomen and pelvis are grossly unremarkable and then enlarged and he terogenous prostate gland and numerous colonic diverticula without pericolonic fat stranding. No susp icious adenopathy in the abdomen or pelvis. Advanced degenerative changes of the left hip and moderat e of the right. Diffuse osseous demineralization. Moderate to severe degenerative disc disease of the spine. IMPRESSION: Extensive hypermetabolic uptake in right-sided hemithorax circumferential pleural plaquin g in this patient with recently diagnosed mesothelioma. No infradiaphragmatic metastatic disease nor abnormal adenopathy in the chest, abdomen, or pelvis.
== END | disposition home or self-care (01) ==
LOC: RADPETMAIN 14:47
PROVIDERS: ATTEND Internal Medicine Hematology & Oncology
DX: C45.0 Mesothelioma of pleura (principal)
CPT/HCPCS: 78815; A9552

== ENCOUNTER 2019-12-29 23:40 | Inpatient (IN) | payer MEDICARE, BC ==
[2019-12-29] MEDS ORDERED: DILTIAZEM 125 MG in SODIUM CHLORIDE 0.9% 100 ML IV SCH (23:45)
[2019-12-29] MEDS ORDERED: SODIUM CHLORIDE 0.9% 500 ML 500 ML IV STA (23:48)
[2019-12-29] MEDS ORDERED: ASPIRIN 81 MG PO STA (23:48)
[2019-12-29] MEDS ORDERED: DILTIAZEM DRIP BOLUS FROM BAG 1 MG SOLN IV ONE (23:49)
--- NOTE | 2019-12-30 00:09 | ED ---
Arrhythmia/Palpitations HPI - General Chief Complaint: Arrhythmia/Palpitations Stated Complaint: chest pain Time Seen by Provider: 12/29/19 23:48 Source: patient Mode of arrival: wheelchair Limitations: no limitations - History of Present Illness Initial Comments: Chai is a pleasant 79-year-old male with a history of atrial fibrillation for which she is on aspirin, Plavix and metoprolol, patient also has history is mesothelioma. Patient presents to the emergency department today for evaluation of palpitations. Patient reports that this is the third night in a row he's expressed palpitations and a heart rate that is in the 150s. Patient reports that the past 2 nights it lasted for 6-8 hours and then resolved. Patient reports that he's been compliant with his home medications. Patient denies any chest pain but does report generalized weakness and some mild shortness of breath when his heart is racing. He does keep him from sleeping. Patient states that tonight his significant other's experiencing some back pain and asked to come the hospital so he agreed to be evaluated as well he otherwise would've stayed home and allow this to resolve on its own. - Related Data Home Medications Medication Instructions Recorded Confirmed Flecainide [Tambocor] 50 mg PO BID 07/28/14 11/27/19 Metoprolol Tartrate [Lopressor] 50 mg PO BID 07/28/14 11/27/19 Atorvastatin [Lipitor] 20 mg PO HS 05/17/17 11/27/19 Isosorbide Mononitrate ER [Imdur] 30 mg PO DAILY 06/26/18 11/27/19 predniSONE 0 mg PO DIRECTED 11/27/19 11/27/19 Previous Rx's Medication Instructions Recorded Aspirin 81 mg PO DAILY chew 12/08/16 Clopidogrel [Plavix] 75 mg PO DAILY #90 tab 12/08/16 metFORMIN HCL [Glucophage] 500 mg PO BID-W/MEALS #60 tab 05/20/19 Allergies Allergy/AdvReac Type Severity Reaction Status Date / Time amoxicillin [Amoxicillin] Allergy Rash/Hives Verified 12/29/19 23:47 Review of Systems ROS Statement: Those systems with pertinent positive or pertinent negative responses have been documented in the HPI. ROS Other: All systems not noted in ROS Statement are negative. Past Medical History Past Medical History: Atrial Fibrillation, Cancer, Diabetes Mellitus, GERD/Reflux, Hearing Disorder / Deafness, Hyperlipidemia, Hypertension, Osteoarthritis (OA), Respiratory Disorder, Syncope Additional Past Medical History / Comment(s): murmur, wears glasses, hard of hearing , upper dentures/lower partial, having difficulty with activity and SOB. 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 per pathology report 07/06/2018 History of Any Multi-Drug Resistant Organisms: None Reported Past Surgical History: Cardiac Valve Replacement, Heart Catheterization With Stent, Hernia Repair, Tonsillectomy Additional Past Surgical History / Comment(s): kate, aortic valve replacement 03/2010, nasal surg x3 , rt cataract removal with implant, colonoscopy, bilateral inguinal hernia Past Anesthesia/Blood Transfusion Reactions: No Reported Reaction Date of Last Stent Placement:: 2013 Past Psychological History: No Psychological Hx Reported Smoking Status: Former smoker Past Alcohol Use History: None Reported Past Drug Use History: None Reported - Past Family History Mother Family Medical History: No Reported History Father Family Medical History: Cancer Additional Family Medical History / Comment(s): heart problems Sister(s) Family Medical History: Cancer Additional Family Medical History / Comment(s): famaily hx of cancer- breast, lung, esophageal, skin, pancareatic. General Exam - General Exam Comments Initial Comments: Physical Exam GENERAL: Patient is well-developed and well-nourished. Patient is nontoxic and well-hydrated and is in no distress. HENT: Normocephalic, Atraumatic. EYES: PERRL, EOMI PULMONARY: Crackles on right CARDIOVASCULAR: Tachycardic regular Warm and well-perfused extremities ABDOMEN: Soft and nontender with normal bowel sounds. SKIN: Skin is clear with no lesions or rashes and otherwise unremarkable. : Deferred NEUROLOGIC: Patient is alert and oriented x3. Moving all extremities spontaneously MUSCULOSKELETAL: Normal extremities with adequate strength and full range of motion. No lower extremity swelling or edema. No calf tenderness. PSYCHIATRIC: Normal psychiatric evaluation. Limitations: no limitations Course Vital Signs 12/29/19 12/30/19 12/30/19 23:46 00:09 00:15 Temperature 97.9 F Pulse Rate 144 H 146 H Pulse Rate [ 151 H Clay Modeler ] Respiratory 22 18 Rate Blood Pressure 92/62 95/79 O2 Sat by Pulse 97 96 Oximetry 12/30/19 12/30/19 12/30/19 00:30 00:45 01:00 Temperature Pulse Rate 147 H 146 H 144 H Pulse Rate [ Clay Modeler ] Respiratory 18 18 18 Rate Blood Pressure 96/76 98/74 97/76 O2 Sat by Pulse 96 95 96 Oximetry 12/30/19 01:11 Temperature Pulse Rate Pulse Rate [ Clay Modeler ] Respiratory Rate Blood Pressure O2 Sat by Pulse 95 Oximetry EKG Findings - EKG Comments: EKG Findings:: EKG was obtained due to profound tachycardia, EKG was obtained at 2352, rate is 146, rhythm is narrow complex regular tachycardia consistent with atrial flutter with a 2-1 block. There are no acute ST elevations mild ST depressions laterally likely ischemic secondary to tachycardia. There is no evidence of acute infarction. Medical Decision Making - Medical Decision Making The patient was seen and evaluated immediately upon arrival, she noted to be per family tachycardic EKG confirms atrial flutter with a 2-1 block Patient does have a history of atrial fibrillation he is on metoprolol he has been compliant with his medications Patient is not anticoagulated only on Antivert platelet medications Patient received Cardizem bolus and drip for greater than 90 minutes with no improvement in his rate, blood pressures remained borderline, patient received a single dose of push dose metoprolol with no improvement in his heart rate and blood pressure dipped slightly Cardiology was consult it, recommended starting heparin, amiodarone. Considering the patient is not truly anticoagulated and seems to been in atrial flutter for 3 nights would be preferable to avoid cardioversion therefore we will start heparin and if patient requires cardioversion in the morning will be performed by cardiology. Patient care was discussed with the admitting physician Dr. Blandon who agrees with plan for admission for atrial flutter with rapid ventricular response. - Lab Data Result diagrams: 12/30/19 00:04 12/30/19 00:04 Lab Results 12/30/19 12/30/19 12/30/19 Range/Units 00:04 00:04 00:04 WBC 14.1 H (3.8-10.6) k/uL RBC 4.68 (4.30-5.90) m/uL Hgb 14.8 (13.0-17.5) gm/dL Hct 44.4 (39.0-53.0) % MCV 95.0 (80.0-100.0) fL MCH 31.6 (25.0-35.0) pg MCHC 33.2 (31.0-37.0) g/dL RDW 15.6 H (11.5-15.5) % Plt Count 218 (150-450) k/uL Neutrophils % 83 % Lymphocytes % 9 % Monocytes % 5 % Eosinophils % 1 % Basophils % 2 % Neutrophils # 11.6 H (1.3-7.7) k/uL Lymphocytes # 1.3 (1.0-4.8) k/uL Monocytes # 0.7 (0-1.0) k/uL Eosinophils # 0.1 (0-0.7) k/uL Basophils # 0.3 H (0-0.2) k/uL PT 9.8 (9.0-12.0) sec INR 0.9 (<1.2) APTT 21.4 L (22.0-30.0) sec Sodium 138 (137-145) mmol/L Potassium 4.2 (3.5-5.1) mmol/L Chloride 98 (98-107) mmol/L Carbon Dioxide 29 (22-30) mmol/L Anion Gap 11 mmol/L BUN 25 H (9-20) mg/dL Creatinine 1.06 (0.66-1.25) mg/dL Est GFR (CKD-EPI)AfAm 76 (>60 ml/min/1.73 sqM) Est GFR (CKD-EPI)NonAf 66 (>60 ml/min/1.73 sqM) Glucose 124 H (74-99) mg/dL Calcium 9.9 (8.4-10.2) mg/dL Magnesium 1.9 (1.6-2.3) mg/dL Total Bilirubin 0.5 (0.2-1.3) mg/dL AST 19 (17-59) U/L ALT 14 (4-49) U/L Alkaline Phosphatase 62 (38-126) U/L Troponin I (0.000-0.034) ng/mL Total Protein 6.7 (6.3-8.2) g/dL Albumin 4.0 (3.5-5.0) g/dL TSH 1.930 (0.465-4.680) mIU/L 12/30/19 Range/Units 00:04 WBC (3.8-10.6) k/uL RBC (4.30-5.90) m/uL Hgb (13.0-17.5) gm/dL Hct (39.0-53.0) % MCV (80.0-100.0) fL MCH (25.0-35.0) pg MCHC (31.0-37.0) g/dL RDW (11.5-15.5) % Plt Count (150-450) k/uL Neutrophils % % Lymphocytes % % Monocytes % % Eosinophils % % Basophils % % Neutrophils # (1.3-7.7) k/uL Lymphocytes # (1.0-4.8) k/uL Monocytes # (0-1.0) k/uL Eosinophils # (0-0.7) k/uL Basophils # (0-0.2) k/uL PT (9.0-12.0) sec INR (<1.2) APTT (22.0-30.0) sec Sodium (137-145) mmol/L Potassium (3.5-5.1) mmol/L Chloride (98-107) mmol/L Carbon Dioxide (22-30) mmol/L Anion Gap mmol/L BUN (9-20) mg/dL Creatinine (0.66-1.25) mg/dL Est GFR (CKD-EPI)AfAm (>60 ml/min/1.73 sqM) Est GFR (CKD-EPI)NonAf (>60 ml/min/1.73 sqM) Glucose (74-99) mg/dL Calcium (8.4-10.2) mg/dL Magnesium (1.6-2.3) mg/dL Total Bilirubin (0.2-1.3) mg/dL AST (17-59) U/L ALT (4-49) U/L Alkaline Phosphatase (38-126) U/L Troponin I <0.012 (0.000-0.034) ng/mL Total Protein (6.3-8.2) g/dL Albumin (3.5-5.0) g/dL TSH (0.465-4.680) mIU/L Critical Care Time Critical Care Time: Yes Total Critical Care Time: 30 Critical Care Time: Critical Care Time Critical care time was exclusive of separately billable procedures and treating other patients and teaching time. Critical care was necessary to treat or prevent imminent or life-threatening deterioration. Given the critical condition in which the patient arrived, the patient was immediately assessed by myself and the nurse, and cardiac monitoring initiated due to the potential for rapid decompensation of the patient's clinical condition. During the course of the patients stay, I spent a considerable amount of time at the bedside performing serial re-evaluations of the patient's hemodynamic and clinical status because of the recognized potential threat to life or limb in this condition. I then had a chance to review not only all of the available current laboratory and radiographic studies obtained today, but I also reviewed old records available to me at the time. Additionally, any ancillary information available including attacher records were reviewed. Sequential vital signs were obtained. Disposition Clinical Impression: Atrial flutter Disposition: ADMITTED IP TO THIS HOSP Condition: Serious Is patient prescribed a controlled substance at d/c from ED?: No
[2019-12-30 00:15] LABS: Basophils # (A) 0.3 k/uL (0-0.2); Basophils % (A) 2 %; Eosinophils # (A) 0.1 k/uL (0-0.7); Eosinophils % (A) 1 %; HCT 44.4 % (39.0-53.0); HGB 14.8 gm/dL (13.0-17.5); Lymphocytes # (A) 1.3 k/uL (1.0-4.8); Lymphocytes % (A) 9 %; MCH 31.6 pg (25.0-35.0); MCHC 33.2 g/dL (31.0-37.0); Mean Platelet Volume 7.3; Monocytes # (A) 0.7 k/uL (0-1.0); Monocytes % (A) 5 %; Neutrophils # (A) 11.6 k/uL (1.3-7.7); Neutrophils % (A) 83 %; Platelet Count 218 k/uL (150-450); RBC 4.68 m/uL (4.30-5.90); RDW 15.6 % (11.5-15.5); WBC 14.1 k/uL (3.8-10.6)
[2019-12-30 00:24] LABS: Calcium 9.9 mg/dL (8.4-10.2); Magnesium 1.9 mg/dL (1.6-2.3); Potassium 4.2 mmol/L (3.5-5.1); Total Bilirubin 0.5 mg/dL (0.2-1.3); Total Protein 6.7 g/dL (6.3-8.2)
[2019-12-30 00:27] LABS: INR 0.9 (<1.2); Prothrombin Time 9.8 sec (9.0-12.0)
--- NOTE | 2019-12-30 00:42 | XR ---
EXAMINATION TYPE: XR chest 2V DATE OF EXAM: 12/30/2019 COMPARISON: 11/27/2019 HISTORY: Dysrhythmia. Chest pain TECHNIQUE: FINDINGS: There is pleural thickening and infiltrate in the right lung with volume loss. Heart is yuli fted to the right side. There is no pneumothorax. Left lung is fairly clear. There are sternal wires. There are chest leads. There is cardiac valve surgery. IMPRESSION: Increasing right side pulmonary infiltrate and volume loss and pleural thickening compare d to last exam. Follow-up recommended. No heart failure seen.
[2019-12-30 00:47] LABS: Partial Thromboplastin Time 21.4 sec (22.0-30.0)
[2019-12-30] MEDS ORDERED: METOPROLOL TARTRATE 5 MG/5 ML VIAL IVP STA (00:51)
[2019-12-30] MEDS ORDERED: HEPARIN SODIUM,PORCINE 5,000 UNIT/ML 1 ML VIAL IV ONE (01:52)
[2019-12-30] MEDS ORDERED: HEPARIN SODIUM,PORCINE 5,000 UNIT/ML 1 ML VIAL IV PRN (01:52)
[2019-12-30] MEDS ORDERED: DEXTROSE 5% IN WATER 100 ML with AMIODARONE 150 MG IV ONE ×2 (01:52→02:05)
[2019-12-30] MEDS ORDERED: DEXTROSE 5% IN WATER 250 ML with AMIODARONE 300 MG IV ONE (01:52)
[2019-12-30] MEDS ORDERED: NALOXONE 0.4 MG/ML 1 ML VIAL IV PRN (01:57)
[2019-12-30] MEDS ORDERED: AMIODARONE 360 MG in DEXTROSE 5% IN WATER 200 ML IV ONE ×2 (02:05)
[2019-12-30] MEDS: HEPARIN SOD,PORK IN 0.45% NACL 25,000 UNIT in 0.45% NACL 1 250ML.BAG IV SCH (02:38)
[2019-12-30 06:21] LABS: Glucose,Whole Blood 134 mg/dL (75-99)
--- NOTE | 2019-12-30 06:59 | P.HPIM ---
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 The patient actually presented here with his girlfriend who had a UTI and subsequently had another recurrence of his palpitations and that presented to the ER . Apparently the patient reported having intermittent episodes of heart racing over the last 3 days, he denied any lightheadedness dizziness or syncope or presyncope, he he denied any chest pain but did report some lung discomfort secondary to his right-sided mesothelioma. The patient reported recently having a biopsy and PET scan done and is followed by Dr. Byrd in oncology clinic. The patient denied any subjective fevers chills night sweats. He reports compliance with his home medications. Patient is a history of mesothelioma in his previous he had radiation therapy and is scheduled to follow-up with Dr. Byrd this morning to discuss further options for chemotherapy. In the ER the patient had a comprehensive workup white count was 14.1, PT/INR 9.8/0.9, troponin was negative at less than 0.012, TSH was 1.93. Chest x-ray showed increasing right sided pulmonary infiltrate and volume loss and pleural thickening compared to last exam. EKG was consistent with atrial flutter with 2: 1 block at a rate of 14. patient was given a bolus of Cardizem, Normal saline without any improvement of his heart rate, with his blood pressure noted to be borderline. Cardiology was consulted and patient was started on amiodarone drip heparin and recommended for admission Review of Systems Pertinent positives per HPI all other review of systems otherwise negative Past Medical History Past Medical History: Atrial Fibrillation, Cancer, Diabetes Mellitus, GERD/Reflux, Hearing Disorder / Deafness, Hyperlipidemia, Hypertension, O steoarthritis (OA), Respiratory Disorder, Syncope Additional Past Medical History / Comment(s): murmur, wears glasses, hard of hearing , upper dentures/lower partial, having difficulty with activity and SOB. 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 per pathology report 07/06/2018 History of Any Multi-Drug Resistant Organisms: None Reported Past Surgical History: Cardiac Valve Replacement, Heart Catheterization With Stent, Hernia Repair, Tonsillectomy Additional Past Surgical History / Comment(s): kate, aortic valve replacement 03/2010, nasal surg x3 , rt cataract removal with implant, colonoscopy, bilateral inguinal hernia Past Anesthesia/Blood Transfusion Reactions: No Reported Reaction Date of Last Stent Placement:: 2013 Smoking Status: Former smoker - Past Family History Mother Family Medical History: No Reported History Father Family Medical History: Cancer Additional Family Medical History / Comment(s): heart problems Sister(s) Family Medical History: Cancer Additional Family Medical History / Comment(s): famaily hx of cancer- breast, lung, esophageal, skin, pancareatic. Medications and Allergies Home Medications Medication Instructions Recorded Confirmed Type RX: Flecainide [Tambocor] 50 mg PO BID 07/28/14 11/27/19 History RX: Metoprolol Tartrate [Lopressor] 50 mg PO BID 07/28/14 11/27/19 History RX: Aspirin 81 mg PO DAILY chew 12/08/16 11/27/19 Rx RX: Clopidogrel [Plavix] 75 mg PO DAILY #90 tab 12/08/16 11/27/19 Rx RX: Atorvastatin [Lipitor] 20 mg PO HS 05/17/17 11/27/19 History RX: Isosorbide Mononitrate ER 30 mg PO DAILY 06/26/18 11/27/19 History [Imdur] RX: metFORMIN HCL [Glucophage] 500 mg PO BID-W/MEALS #60 tab 05/20/19 11/27/19 Rx RX: predniSONE 0 mg PO DIRECTED 11/27/19 11/27/19 History Allergies Allergy/AdvReac Type Severity Reaction Status Date / Time amoxicillin [Amoxicillin] Allergy Rash/Hives Verified 12/29/19 23:47 Physical Exam Vitals: Vital Signs Temp Pulse Pulse Resp BP BP Pulse Ox 12/30/19 03:39 98 F 110 H 20 114/63 94 L 12/30/19 02:44 100 18 88/56 94 L 12/30/19 01:11 95 12/30/19 01:00 144 H 18 97/76 96 12/30/19 00:45 146 H 18 98/74 95 12/30/19 00:30 147 H 18 96/76 96 12/30/19 00:15 146 H 18 95/79 96 12/30/19 00:09 151 H 12/29/19 23:46 97.9 F 144 H 22 92/62 97 Intake and Output 12/29/19 12/29/19 12/30/19 14:59 22:59 06:59 Intake Total 2.167 Balance 2.167 Intake: Intake, IV Titration 2.167 Amount Diltiazem 125 mg In 2.167 Sodium Chloride 0.9% 100 ml @ Per Protocol IV .[facility] Rx#:[id number] Other: # Voids 1 Weight 63.6 kg Constitutional: No acute distress, conversant, pleasant Eyes: Anicteric sclerae, moist conjunctiva, no lid-lag, PERRLA ENMT: NC/AT,Oropharynx clear, no erythema, exudates Neck:Supple, FROM, no masses, or JVD, No carotid bruits; No thyromegaly Lungs: Diminished with Crackles on right, unlabored, CTA on left, unlabored on room air Cardiovascular: Irregularly regular Tachycardic, No murmurs, gallops, or rubs no peripheral edema Abdominal: Soft Nontender, nom distended, no guarding, no rebound or rigidity, Normoactive bowel sounds No hepatomegaly, No splenomegaly, No palpable mass No abdominal wall hernia noted Skin: Normal temperature, tone, texture, turgor, No induration No subcutaneous nodules, No rash, lesions, No ulcers Extremities:No digital cyanosis No clubbing, Pedal pulses intact and symmetrical Radial pulses intact and symmetrical Normal gait and station, No calf tenderness Psychiatric: Alert and oriented to person, place and time, Appropriate affect Intact judgement Neuro: Muscles Strength 5/5 in all 4 extremities, Sensation to light touch grossly present throughout, Cranial nerves II-XII grossly intact. No focal sensory deficits Results CBC & Chem 7: 12/30/19 00:04 12/30/19 00:04 Labs: Abnormal Lab Results - Last 24 Hours (Table) 12/30/19 12/30/19 12/30/19 Range/Units 00:04 00:04 00:04 WBC 14.1 H (3.8-10.6) k/uL RDW 15.6 H (11.5-15.5) % Neutrophils # 11.6 H (1.3-7.7) k/uL Basophils # 0.3 H (0-0.2) k/uL APTT 21.4 L (22.0-30.0) sec BUN 25 H (9-20) mg/dL Glucose 124 H (74-99) mg/dL POC Glucose (mg/dL) (75-99) mg/dL 12/30/19 Range/Units 06:20 WBC (3.8-10.6) k/uL RDW (11.5-15.5) % Neutrophils # (1.3-7.7) k/uL Basophils # (0-0.2) k/uL APTT (22.0-30.0) sec BUN (9-20) mg/dL Glucose (74-99) mg/dL POC Glucose (mg/dL) 134 H (75-99) mg/dL Thrombosis Risk Factor Assmnt - Choose All That Apply Each Risk Factor Represents 3 Points: Age 75 years or older Thrombosis Risk Factor Assessment Total Risk Factor Score: 3 Thrombosis Risk Factor Assessment Level: Moderate Risk Assessment and Plan Assessment: Atrial flutter with RVR and 2:1 block Right-sided mesothelioma Leukocytosis History of atrial fibrillation History of type 2 diabetes History of cardiac valve replacement Plan: The patient is admitted anticipated greater than 2 midnight stay which atrial flutter w RVR with 2: 1 block and patient with a history of atrial fibrillation, heart valve replacement and mesothelioma. Patient is continued on Cardizem drip, and initiated on amiodarone IV heparin drip by cardiology. Will order echocardiogram, and weren't further recommendations from cardiology. Plans for cardioversion at this time as the patient is not fully anticoagulated. Will consult Dr. Byrd for follow-up of the patient's mesothelioma. We'll continue to monitor patient closely on telemetry and continue to follow his clinical course CODE STATUS: DO NOT RESUSCITATE Anticipate discharge place: Home Discussed plan of care with: Patient Prophylaxis: Heparin drip Greater than 60 minutes was spent in evaluation of this complex patient
[2019-12-30] MEDS: AMIODARONE 300 MG in DEXTROSE 5% IN WATER 250 ML IV SCH ×4 (08:17→17:15)
--- NOTE | 2019-12-30 10:54 | ECHOF ---
Referral Reason:Atrial flutter MEASUREMENTS -------- HEIGHT: 170.2 cm WEIGHT: 63.5 kg BP: 114/63 RVIDd: 2.3 cm (< 3.3) IVSd: 1.0 cm (0.6 - 1.1) LVIDd: 3.9 cm (3.9 - 5.3) LVPWd: 0.9 cm (0.6 - 1.1) IVSs: 1.4 cm LVIDs: 2.4 cm LVPWs: 1.3 cm LA Diam: 3.2 cm (2.7 - 3.8) Ao Diam: 2.6 cm (2.0 - 3.7) AV Cusp: 1.5 cm (1.5 - 2.6) MV EXCURSION: 27.657 mm (> 18.000) MV EF SLOPE: 141 mm/s (70 - 150) EPSS: 0.7 cm MV E Naveed: 1.02 m/s MV DecT: 164 ms MV A Naveed: 0.81 m/s MV E/A Ratio: 1.26 AV maxP.19 mmHg AV meanP.30 mmHg FINDINGS -------- Sinus rhythm. This was a technically difficult study with suboptimal views. The left ventricular size is normal. Left ventricular wall thickness is normal. Overall left vent ricular systolic function is normal with, an EF between 60 - 65 %. The right ventricle is normal in size. The left atrial size is normal. The right atrium is normal in size. 4 ml of Lumason was utilized for enhancement of images. Aortic valve is trileaflet and is mildly thickened. Peak/mean gradient across the Aortic Valve is 2 .19mmHg / 1.30mmHg. Normally functioning bioprosthetic valve. The mitral valve leaflets are mildly thickened. Mild mitral annular calcification present. Mild tricuspid regurgitation present. Right ventricular systolic pressure is normal at < 35 mmHg. The pulmonic valve was not well visualized. The aortic root size is normal. Normal inferior vena cava with normal inspiratory collapse consistent with estimated right atrial pre ssure of 5 mmHg. There is no pericardial effusion. CONCLUSIONS -------- 1. Sinus rhythm. 2. This was a technically difficult study with suboptimal views. 3. The left ventricular size is normal. 4. Left ventricular wall thickness is normal. 5. Overall left ventricular systolic function is normal with, an EF between 60 - 65 %. 6. The right ventricle is normal in size. 7. The left atrial size is normal. 8. The right atrium is normal in size. 9. 4 ml of Lumason was utilized for enhancement of images. 10. Aortic valve is trileaflet and is mildly thickened. 11. Peak/mean gradient across the Aortic Valve is 2.19mmHg / 1.30mmHg. 12. Normally functioning bioprosthetic valve. 13. The mitral valve leaflets are mildly thickened. 14. Mild mitral annular calcification present. 15. Mild tricuspid regurgitation present. 16. Right ventricular systolic pressure is normal at < 35 mmHg. 17. The pulmonic valve was not well visualized. 18. The aortic root size is normal. 19. Normal inferior vena cava with normal inspiratory collapse consistent with estimated right atrial pressure of 5 mmHg. 20. There is no pericardial effusion. FACTORY SUPERVISOR: Jahaira Cruz RDCS
--- NOTE | 2019-12-30 11:02 | P.CRDCN ---
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 Patient recently underwent a biopsy and PET scan, and also carries a recent diagnosis of mesothelioma. His prior job was working with significant asbestos exposure. He does have prior history of smoking, he quit in 1950, he does not drink alcohol. Patient does have a history of paroxysmal atrial fibrillation, he states that he was on xarelto in the past but this was discontinued. At present he was on a baby aspirin and Plavix. He presented to the hospital on this occasion with his of palpitations and heart racing. He states he first noticed it approximately 3 days ago, he states that the symptoms subsided, and again started through the night last night. He had significant heart racing, shortness of breath, and a discomfort in both of his jaws. On presentation here patient was found to be in atrial flutter with a rapid ventricular response. His chest x-ray showed an increasing right sided pulmonary infiltrate and volume loss, pleural thickening compared with last exam. His blood pressure on arrival here 92/60, heart rate in the 150 range, 97% on room air, temperature 97.9. Patient was initiated on IV amiodarone, he has since converted to normal sinus rhythm. His blood pressure this morning 104/58, heart rate in the 90s, 95% on room air. Laboratory data, white blood cell count 14.1, hemoglobin 14.8, platelet count 218. Sodium 138, potassium 4.2, BUN 25, creatinine 1.0. Troponin 0.012, TSH 1.9. At the time of my examination this morning, patient feels well, he denies any palpitations, and his breathing is overall stable. Past Medical History Past Medical History: Atrial Fibrillation, Cancer, Diabetes Mellitus, GERD/Reflux, Hearing Disorder / Deafness, Hyperlipidemia, Hypertension, Osteoarthritis (OA), Respiratory Disorder, Syncope Additional Past Medical History / Comment(s): murmur, wears glasses, hard of hearing , upper dentures/lower partial, having difficulty with activity and SOB. 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 per pathology report 07/06/2018 History of Any Multi-Drug Resistant Organisms: None Reported Past Surgical History: Cardiac Valve Replacement, Heart Catheterization With Stent, Hernia Repair, Tonsillectomy Additional Past Surgical History / Comment(s): kate, aortic valve replacement 03/2010, nasal surg x3 , rt cataract removal with implant, colonoscopy, bilateral inguinal hernia Past Anesthesia/Blood Transfusion Reactions: No Reported Reaction Date of Last Stent Placement:: 2013 Smoking Status: Former smoker - Past Family History Mother Family Medical History: No Reported History Father Family Medical History: Cancer Additional Family Medical History / Comment(s): heart problems Sister(s) Family Medical History: Cancer Additional Family Medical History / Comment(s): famaily hx of cancer- breast, lung, esophageal, skin, pancareatic. Medications and Allergies Home Medications Medication Instructions Recorded Confirmed Type Flecainide [Tambocor] 50 mg PO BID 07/28/14 11/27/19 History Metoprolol Tartrate [Lopressor] 50 mg PO BID 07/28/14 11/27/19 History Aspirin 81 mg PO DAILY chew 12/08/16 11/27/19 Rx Clopidogrel [Plavix] 75 mg PO DAILY #90 tab 12/08/16 11/27/19 Rx Atorvastatin [Lipitor] 20 mg PO HS 05/17/17 11/27/19 History Isosorbide Mononitrate ER [Imdur] 30 mg PO DAILY 06/26/18 11/27/19 History metFORMIN HCL [Glucophage] 500 mg PO BID-W/MEALS #60 tab 05/20/19 11/27/19 Rx predniSONE 0 mg PO DIRECTED 11/27/19 11/27/19 History Allergies Allergy/AdvReac Type Severity Reaction Status Date / Time amoxicillin [Amoxicillin] Allergy Rash/Hives Verified 12/29/19 23:47 Physical Exam Vitals: Vital Signs Temp Pulse Pulse Resp BP BP BP 12/30/19 08:00 97.8 F 94 20 103/58 12/30/19 03:39 98 F 110 H 20 114/63 12/30/19 02:44 100 18 88/56 12/30/19 01:11 12/30/19 01:00 144 H 18 97/76 12/30/19 00:45 146 H 18 98/74 12/30/19 00:30 147 H 18 96/76 12/30/19 00:15 146 H 18 95/79 12/30/19 00:09 151 H 12/29/19 23:46 97.9 F 144 H 22 92/62 Pulse Ox 12/30/19 08:00 95 12/30/19 03:39 94 L 12/30/19 02:44 94 L 12/30/19 01:11 95 12/30/19 01:00 96 12/30/19 00:45 95 12/30/19 00:30 96 12/30/19 00:15 96 12/30/19 00:09 12/29/19 23:46 97 Intake and Output 12/29/19 12/30/19 12/30/19 22:59 06:59 14:59 Intake Total 2.167 240 Balance 2.167 240 Intake: Intake, IV Titration 2.167 Amount Diltiazem 125 mg In 2.167 Sodium Chloride 0.9% 100 ml @ Per Protocol IV .Q0M [facility] Rx#:[id number] Oral 240 Other: # Voids 1 Weight 63.6 kg PHYSICAL EXAMINATION: GENERAL: 79-year-old gentleman in no acute distress at the time of my examination HEENT: Head is atraumatic, normocephalic. Pupils equal, round. Sclera anicteric. Conjunctiva are clear. Mucous membranes of the mouth are moist. Neck is supple. There is no elevated jugular venous pressure. No carotid b ruit is heard. HEART EXAMINATION: Heart S1 and S2 systolic ejection murmur is heard at the base CHEST EXAMINATION: Lungs are clear with mild diminished air entry to the bases ABDOMEN: Soft, nontender. Bowel sounds are heard. No organomegaly noted. EXTREMITIES: 2+ peripheral pulses with no evidence of peripheral edema and no calf tenderness noted. NEUROLOGIC patient is awake, alert and oriented 3 . . Results 12/30/19 00:04 12/30/19 00:04 Cardiac Enzymes 12/30/19 12/30/19 Range/Units 00:04 00:04 AST 19 (17-59) U/L Troponin I <0.012 (0.000-0.034) ng/mL Coagulation 12/30/19 12/30/19 Range/Units 00:04 08:43 PT 9.8 (9.0-12.0) sec APTT 21.4 L 46.7 H (22.0-30.0) sec CBC 12/30/19 Range/Units 00:04 WBC 14.1 H (3.8-10.6) k/uL RBC 4.68 (4.30-5.90) m/uL Hgb 14.8 (13.0-17.5) gm/dL Hct 44.4 (39.0-53.0) % Plt Count 218 (150-450) k/uL Comprehensive Metabolic Panel 12/30/19 Range/Units 00:04 Sodium 138 (137-145) mmol/L Potassium 4.2 (3.5-5.1) mmol/L Chloride 98 (98-107) mmol/L Carbon Dioxide 29 (22-30) mmol/L BUN 25 H (9-20) mg/dL Creatinine 1.06 (0.66-1.25) mg/dL Glucose 124 H (74-99) mg/dL Calcium 9.9 (8.4-10.2) mg/dL AST 19 (17-59) U/L ALT 14 (4-49) U/L Alkaline Phosphatase 62 (38-126) U/L Total Protein 6.7 (6.3-8.2) g/dL Albumin 4.0 (3.5-5.0) g/dL Current Medications Generic Name Dose Route Start Last Admin Trade Name Freq PRN Reason Stop Dose Admin Heparin Sodium (Porcine) 0 unit 12/30/19 01:52 Heparin IV PER PROTOCOL PRN Low PTT Protocol Diltiazem HCl 125 mg/ Sodium 125 mls @ 0 mls/hr 12/29/19 23:45 12/30/19 00:30 Chloride IV 10 mls/hr .Q0M [facility] 10 mls/hr Titration Protocol Per Protocol Heparin Sodium/Sodium Chloride 250 mls @ 7.893 mls/hr 12/30/19 02:00 12/30/19 02:38 25,000 unit/ Sodium Chloride IV 12 units/kg/hr .Q24H JOSHUA 7.893 mls/hr Administration Protocol 12 UNITS/KG/HR Amiodarone HCl 300 mg/ 250 mls @ 25 mls/hr 12/30/19 08:05 12/30/19 08:17 Dextrose/Water IV 12/31/19 02:04 0.5 mg/min .Q10H JOSHUA 25 mls/hr Administration Protocol 0.5 MG/MIN Naloxone HCl 0.2 mg 12/30/19 01:57 Narcan IV Q2M PRN Opioid Reversal Intake and Output 12/29/19 12/30/19 12/30/19 22:59 06:59 14:59 Intake Total 2.167 240 Balance 2.167 240 Intake: Intake, IV Titration 2.167 Amount Diltiazem 125 mg In 2.167 Sodium Chloride 0.9% 100 ml @ Per Protocol IV .Q0M [facility] Rx#:[id number] Oral 240 Other: # Voids 1 Weight 63.6 kg 12/30/19 00:04 12/30/19 00:04 EKG Interpretations (text) EKG on presentation here showed atrial flutter, typical, heart rate 146 Assessment and Plan Plan: Assessment and plan #1 atrial flutter, typical, with rapid ventricular response, patient currently in normal sinus rhythm #2 history of paroxysmal atrial fibrillation, not currently on anticoagulation #3 known history of coronary artery disease with prior circumflex stenting in 2015 #4 history of aortic valve replacement with tissue aortic valve in March 2010 #5 hyperlipidemia #6 prior history of smoking #7 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 Continue IV amiodarone, once the IV is completed we will start the patient on oral amiodarone. Consider oral anticoagulation. Resume statin and a baby aspi rin. Resume beta momo at a lower dose of 25 mg twice a day. Further recommendations to follow. DNP note has been reviewed, I agree with a documented findings and plan of care. Patient was seen and examined.
[2019-12-30 12:05] LABS: Glucose,Whole Blood 113 mg/dL (75-99)
[2019-12-30] MEDS: ATORVASTATIN 20 MG TAB PO SCH (12:47)
[2019-12-30] MEDS: METOPROLOL TARTRATE 25 MG TAB PO SCH ×2 (12:48→20:02)
--- NOTE | 2019-12-30 14:05 | P.PN ---
Subjective Progress Note Date: 12/30/19 Principal diagnosis: this is non billable note patient seen in follow up for aflutter Patient seen and examined denies any chest pain or trouble breathing denies any palpitations at this time dizziness or lightheadedness. Objective - Vital Signs Vital signs: Vital Signs Temp 97.8 F 12/30/19 12:00 Pulse 74 12/30/19 12:00 Resp 20 12/30/19 12:00 BP 121/65 12/30/19 12:00 Pulse Ox 96 12/30/19 12:00 Intake & Output 12/29/19 12/30/19 12/30/19 18:59 06:59 18:59 Intake Total 2.167 240 Balance 2.167 240 Weight 63.6 kg Intake: Intake, IV Titration 2.167 Amount Diltiazem 125 mg In 2.167 Sodium Chloride 0.9% 100 ml @ Per Protocol IV .Q0M [facility] Rx#:[id number] Oral 240 Other: Voiding Method Toilet # Voids 1 - Exam Constitutional: vital signs stable, Not in acute distress, pleasant, conversant Lungs: Clear to auscultation bilaterally, clear to percussion, normal res piratory effort Cardiovascular: Regular rate and rhythm, no murmurs, no gallops, no rubs, no peripheral edema Gastrointestinal: Soft, no tenderness to palpation, no palpable hepatosplenomegally, bowel sounds positive Extremities: No digital cyanosis or clubbing, peripheral pulses palpable and eq ual , no calf muscle tenderness Psych: Alert, oriented to place, person and time, appropriate affect, intact judgment - Labs CBC & Chem 7: 12/30/19 00:04 12/30/19 00:04 Labs: Abnormal Lab Results - Last 24 Hours (Table) 12/30/19 12/30/19 12/30/19 Range/Units 00:04 00:04 00:04 WBC 14.1 H (3.8-10.6) k/uL RDW 15.6 H (11.5-15.5) % Neutrophils # 11.6 H (1.3-7.7) k/uL Basophils # 0.3 H (0-0.2) k/uL APTT 21.4 L (22.0-30.0) sec BUN 25 H (9-20) mg/dL Glucose 124 H (74-99) mg/dL POC Glucose (mg/dL) (75-99) mg/dL 12/30/19 12/30/19 12/30/19 Range/Units 06:20 08:43 12:03 WBC (3.8-10.6) k/uL RDW (11.5-15.5) % Neutrophils # (1.3-7.7) k/uL Basophils # (0-0.2) k/uL APTT 46.7 H (22.0-30.0) sec BUN (9-20) mg/dL Glucose (74-99) mg/dL POC Glucose (mg/dL) 134 H 113 H (75-99) mg/dL Assessment and Plan Assessment: The patient is a 79-year-old male with a past medical history of atrial fibrillation, aortic valve replacement, 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 patient reported having intermittent episodes of heart racing over the last 3 days, he denied any lightheadedness dizziness or syncope or presyncope, he he denied any chest pain but did report some lung discomfort secondary to his right-sided mesothelioma. The patient reported recently having a biopsy and PET scan done and is followed by Dr. Byrd in oncology clinic. Patient is a history of mesothelioma in his previous he had radiation therapy and is scheduled to follow-up with Dr. Byrd this morning to discuss further options for chemotherapy. EKG was consistent with atrial flutter with 2: 1 block Plan: Atrial flutter with rapid ventricular response, with history of paroxysmal A. fib not on anticoagulation Patient currently normal sinus rhythm Currently on amiodarone drip will transition to by mouth amiodarone per cardiology recommendations Currently on heparin drip Lopressor dose adjusted by cardiology Continue to monitor hemoglobin, and electrolytes Follow-up echocardiogram results Chronic conditions Diabetes mellitus, hold oral hypoglycemic agents, insulin sliding scale History of CAD status post stents 2015, continue with aspirin and statin Aortic valve replacement 2009 Mesothelioma outpatient follow-up with oncology Hyperlipidemia
--- NOTE | 2019-12-30 15:17 | P.CONS ---
History of Present Illness - Reason for Consult Consult date: 12/30/19 mesothelioma Requesting physician: Axel Blandon - Chief Complaint palpitations, SOB - History of Present Illness Mr. Howell is a very pleasant 79-year-old male patient of Dr. Morales with hx of asbestosis. He had worsening exertional dyspnea, CT scan 05/29/18 showed a 2.4 cm subpleural nodule in the right upper lobe, worsening of pleural-based thickening of the right hemithorax, chronic, stable small pleural effusions. 06/02/18 PET scan revealed intense uptake in the right upper lobe mass, SUV was 16, pleural nodularities more intense uptake and soft tissues containing in the peripheral right lower lobe of an area spanning 9 cm. FNA of the right upper lobe mass 07/03/18 positive for non-small cell carcinoma, favoring squamous cell. At that time the other suspicious areas were not amenable to CT biopsy and would require throascopic evaluation, pt did not want any further aggressive procedures or treatment. Squamous cell NSCLC vs mesothelioma were the dif ferentials. Pt completed definitive SBRT, with Dr. Rios, to RUL known squamous cell carcinoma, plan was to monitor RLL changes with serial CT scans. Pt was not seen in the office until 12/10/19. He was referred back because of CT chest 09/06/2019 revealed worsening circumferential pleural thickening throughout the right hemithorax and increasing patchy infiltrate in right apex, CT AP 09/19/19 was negative. 11/27/19, CT guided biopsy of MIRIAM, pathology and IHC were positive for mesothelioma, epitheloid type. At that office visit they discussed his recent diagnosis, natural history of his disease, prognosis and treatment options. Pt not felt to be a surgical candidate due to his poor performance status, co-morbidities and extend of his disease. Systemic therapy with palliative intent was discussed. Also discussed the option of comfort care only. Pt wanted to think about his options, staging PET scan was ordered. He was due for results in the office today. Patient's significant other was actually the one being brought to the hospital but, when the patient came in from the parking lot he was found to have some difficulty breathing, pale, c/o palpitations, he was evaluated by the medical staff and found to be in A. fib with RVR. Patient is currently on a heparin drip, he is denying any palpitations, chest pain, has done a lot of sleeping today, he denies any nausea, vomiting, numbness or tingling, acute bowel or bladder changes, swelling in the lower extremities. He does have shortness of breath with exertion, he is steroid dependent, dry cough, he has pain in the rig ht chest, feels like "sandpaper" when he takes a deep breath, it is persistent, not progressive. Has lost over 20 pounds since May 2019, no fever or night sweats. Review of Systems 14 point review of systems is negative except as stated in HPI Past Medical History Past Medical History: Atrial Fibrillation, Cancer, Diabetes Mellitus, GERD/Reflux, Hearing Disorder / Deafness, Hyperlipidemia, Hypertension, Osteoarthritis (OA), Respiratory Disorder, Syncope Additional Past Medical History / Comment(s): murmur, wears glasses, hard of hearing , upper dentures/lower partial, having difficulty with activity and SOB. 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 per pathology report 07/06/2018 History of Any Multi-Drug Resistant Organisms: None Reported Past Surgical History: Cardiac Valve Replacement, Heart Catheterization With Stent, Hernia Repair, Tonsillectomy Additional Past Surgical History / Comment(s): kate, aortic valve replacement 03/2010, nasal surg x3 , rt cataract removal with implant, colonoscopy, bilateral inguinal hernia Past Anesthesia/Blood Transfusion Reactions: No Reported Reaction Date of Last Stent Placement:: 2013 Past Psychological History: No Psychological Hx Reported Smoking Status: Former smoker Past Alcohol Use History: None Reported Past Drug Use History: None Reported - Past Family History Mother Family Medical History: No Reported History Father Family Medical History: Cancer Additional Family Medical History / Comment(s): heart problems Sister(s) Family Medical History: Cancer Additional Family Medical History / Comment(s): famaily hx of cancer- breast, lung, esophageal, skin, pancareatic. Medications and Allergies Home Medications Medication Instructions Recorded Confirmed Type Flecainide [Tambocor] 50 mg PO BID 07/28/14 12/30/19 History Metoprolol Tartrate [Lopressor] 50 mg PO BID 07/28/14 12/30/19 History Aspirin 81 mg PO DAILY chew 12/08/16 12/30/19 Rx Atorvastatin [Lipitor] 20 mg PO HS 05/17/17 12/30/19 History Isosorbide Mononitrate ER [Imdur] 30 mg PO DAILY 06/26/18 12/30/19 History metFORMIN HCL [Glucophage] 500 mg PO BID-W/MEALS #60 tab 05/20/19 12/30/19 Rx predniSONE 20 mg PO DAILY 11/27/19 12/30/19 History Clopidogrel [Plavix] 75 mg PO HS 12/30/19 12/30/19 History Ondansetron Odt [Zofran Odt] 8 mg PO Q8HR PRN 12/30/19 12/30/19 History Allergies Allergy/AdvReac Type Severity Reaction Status Date / Time amoxicillin [Amoxicillin] Allergy Rash/Hives Verified 12/30/19 11:10 Physical Exam Vitals: Vital Signs Temp Pulse Pulse Resp BP BP BP 12/30/19 12:00 97.8 F 74 20 121/65 12/30/19 08:00 97.8 F 94 20 103/58 12/30/19 03:39 98 F 110 H 20 114/63 12/30/19 02:44 100 18 88/56 12/30/19 01:11 12/30/19 01:00 144 H 18 97/76 12/30/19 00:45 146 H 18 98/74 12/30/19 00:30 147 H 18 96/76 12/30/19 00:15 146 H 18 95/79 12/30/19 00:09 151 H 12/29/19 23:46 97.9 F 144 H 22 92/62 Pulse Ox 12/30/19 12:00 96 12/30/19 08:00 95 12/30/19 03:39 94 L 12/30/19 02:44 94 L 12/30/19 01:11 95 12/30/19 01:00 96 12/30/19 00:45 95 12/30/19 00:30 96 12/30/19 00:15 96 12/30/19 00:09 12/29/19 23:46 97 Intake and Output 12/29/19 12/30/19 12/30/19 22:59 06:59 14:59 Intake Total 2.167 480 Balance 2.167 480 Intake: Intake, IV Titration 2.167 Amount Diltiazem 125 mg In 2.167 Sodium Chloride 0.9% 100 ml @ Per Protocol IV .Q0M [facility] Rx#:[id number] Oral 480 Other: Voiding Method Toilet # Voids 1 Weight 63.6 kg - Constitutional General appearance: average body habitus, cooperative, no acute distress - EENT Eyes: anicteric sclerae, edentulous ENT: hearing grossly normal, normal oropharynx - Neck Neck: no lymphadenopathy - Respiratory Respiratory: right: diminished, left: CTA - Cardiovascular Rhythm: regular Heart sounds: normal: S1, S2 Abnormal Heart Sounds: systolic murmur leg Peripheral Edema: bilateral: None - Gastrointestinal General gastrointestinal: no absent bowel sounds, no decreased bowel sounds, no distended, no hepatomegaly, no hyperactive bowel sounds, normal bowel sounds, no organomegaly, no rigid, no scaphoid, soft, no splenomegaly, no tenderness, no umbilical hernia, no ventral hernia - Integumentary Integumentary: normal - Neurologic Neurologic: CNII-XII intact - Musculoskeletal Musculoskeletal: strength equal bilaterally - Psychiatric Psychiatric: A&O x's 3, appropriate affect, intact judgment & insight Results CBC & Chem 7: 12/30/19 00:04 12/30/19 00:04 Labs: Abnormal Lab Results - Last 24 Hours (Table) 12/30/19 12/30/19 12/30/19 Range/Units 00:04 00:04 00:04 WBC 14.1 H (3.8-10.6) k/uL RDW 15.6 H (11.5-15.5) % Neutrophils # 11.6 H (1.3-7.7) k/uL Basophils # 0.3 H (0-0.2) k/uL APTT 21.4 L (22.0-30.0) sec BUN 25 H (9-20) mg/dL Glucose 124 H (74-99) mg/dL POC Glucose (mg/dL) (75-99) mg/dL 12/30/19 12/30/19 12/30/19 Range/Units 06:20 08:43 12:03 WBC (3.8-10.6) k/uL RDW (11.5-15.5) % Neutrophils # (1.3-7.7) k/uL Basophils # (0-0.2) k/uL APTT 46.7 H (22.0-30.0) sec BUN (9-20) mg/dL Glucose (74-99) mg/dL POC Glucose (mg/dL) 134 H 113 H (75-99) mg/dL Chest x-ray: report reviewed Assessment and Plan (1) Atrial flutter Narrative/Plan: Patient is doing much better since admit. Defer to Cardiology for optimal medical management. Current Visit: Yes Status: Acute Priority: High Code(s): I48.92 - UNSPECIFIED ATRIAL FLUTTER SNOMED Code(s): 1350056 (2) Mesothelioma Narrative/Plan: Patient was given the office today for PET scan results and discussion about goals for the future. I will review the case with Dr. Morales. I will follow-up with the patient and his in the morning. I will ensure that they have a follow-up with Dr. Morales in the very near future. They were satisfied with this plan. Current Visit: Yes Status: Acute Priority: High Code(s): C45.9 - MESOTHELIOMA, UNSPECIFIED SNOMED Code(s): 831381278 (3) Dyspnea Narrative/Plan: Secondary to his lung disease. Exacerbated by arrhythmia. Currently not O2 dependent Current Visit: Yes Status: Chronic Priority: Medium Code(s): R06.00 - DY SPNEA, UNSPECIFIED SNOMED Code(s): 113661320 (4) Squamous NSCLC Narrative/Plan: history of, treated with definitive radiation Current Visit: No Status: Chronic Priority: Medium Code(s): C34.90 - MALIGNANT NEOPLASM OF UNSP PART OF UNSP BRONCHUS OR LUNG SNOMED Code(s): 204127700
[2019-12-30 17:02] LABS: Glucose,Whole Blood 156 mg/dL (75-99)
[2019-12-30] MEDS: INSULIN ASPART (NovoLOG) 100 UNIT/ML VIAL SQ SCH ×2 (17:35→20:02)
[2019-12-30 20:12] LABS: Glucose,Whole Blood 286 mg/dL (75-99)
[2019-12-31 06:15] LABS: Glucose,Whole Blood 125 mg/dL (75-99)
[2019-12-31] MEDS: INSULIN ASPART (NovoLOG) 100 UNIT/ML VIAL SQ SCH ×4 (06:27→20:46)
[2019-12-31] MEDS: HEPARIN SOD,PORK IN 0.45% NACL 25,000 UNIT in 0.45% NACL 1 250ML.BAG IV SCH (06:30)
[2019-12-31 06:59] LABS: Basophils % (A) 0 %; Eosinophils # (A) 0.1 k/uL (0-0.7); Eosinophils % (A) 1 %; HGB 14.4 gm/dL (13.0-17.5); Lymphocytes # (A) 1.6 k/uL (1.0-4.8); Lymphocytes % (A) 11 %; MCH 31.7 pg (25.0-35.0); MCHC 32.8 g/dL (31.0-37.0); MCV 96.7 fL (80.0-100.0); Mean Platelet Volume 7.7; Monocytes # (A) 0.8 k/uL (0-1.0); Monocytes % (A) 5 %; Neutrophils # (A) 11.3 k/uL (1.3-7.7); Neutrophils % (A) 82 %; Platelet Count 184 k/uL (150-450); RBC 4.55 m/uL (4.30-5.90); RDW 15.5 % (11.5-15.5); WBC 13.8 k/uL (3.8-10.6)
[2019-12-31 08:29] LABS: Magnesium 1.7 mg/dL (1.6-2.3)
[2019-12-31] MEDS: APIXABAN 5 MG TAB PO SCH ×2 (08:42→20:45)
[2019-12-31] MEDS: ASPIRIN 81 MG PO SCH (09:05)
[2019-12-31] MEDS: ATORVASTATIN 20 MG TAB PO SCH (09:05)
[2019-12-31] MEDS: METOPROLOL TARTRATE 25 MG TAB PO SCH ×3 (09:05→20:45)
[2019-12-31] MEDS: AMIODARONE 200 MG TAB PO SCH ×2 (09:05→20:46)
[2019-12-31] MEDS: HYDROcodone/APAP 5-325MG 1 EACH TAB PO PRN ×2 (09:21→15:31)
--- NOTE | 2019-12-31 11:51 | CT ---
EXAMINATION TYPE: CT angio chest DATE OF EXAM: 12/31/2019 COMPARISON: PET/CT 12/20/2019, chest x-ray 12/30/2019 HISTORY: Dyspnea on exertion, mesothelioma CT DLP: 450.8 mGycm Automated exposure control for dose reduction was used. CONTRAST: CTA scan of the thorax is performed with IV Contrast, patient injected with 100 mL of Isovue 370, pul monary embolism protocol. MIP images are created and reviewed. 3D reconstructed images are created on an independent workstation and reviewed. FINDINGS: LUNGS: The findings of patient's right-sided mesothelioma again noted, there are areas of rib destruc tion on the right with interval pathologic fracture at the site of prior biopsy of the anterior right fourth rib, calcified pleural plaques. Right lung is involved by abnormal soft tissue. Interstitial changes are present at the lung bases. AORTA: No additional significant abnormality is seen. MEDIASTINUM: There is satisfactory enhancement of the pulmonary artery and its branches, there is no CT evidence for pulmonary embolism. There are no greater than 1 cm hilar or mediastinal lymph nodes. No pericardial effusion is seen. OTHER: Volume loss noted in the right hemithorax. IMPRESSION: INTERVAL PATHOLOGIC FRACTURE DESCRIBED, FINDINGS COMPATIBLE WITH MESOTHELIOMA. NO EVIDENT PULMONAR Y EMBOLISM.
[2019-12-31 11:55] LABS: Glucose,Whole Blood 154 mg/dL (75-99)
--- NOTE | 2019-12-31 13:46 | P.PN ---
Subjective Progress Note Date: 12/31/19 Principal diagnosis: this is non billable note patient seen in follow up for aflutter Patient seen and examined patient reports trouble breathing this morning that he experiences often in the morning at home, his heart rate was up this morning denies nausea vomiting, fevers, or chills,, denies any chest pain Objective - Vital Signs Vital signs: Vital Signs Temp 97.5 F L 12/31/19 11:23 Pulse 113 H 12/31/19 11:23 Resp 20 12/31/19 11:23 BP 96/61 12/31/19 11:23 Pulse Ox 95 12/31/19 11:23 Intake & Output 12/30/19 12/31/19 12/31/19 18:59 06:59 18:59 Intake Total 1850.167 219.952 600 Output Total 400 Balance 1850.167 -180.048 600 Weight 66 kg Intake: IV 906 Amiodarone 300 mg In 250 Dextrose 5% in Water 250 ml @ 0.5 MG/MIN 25 mls/hr IV .Q10H JOSHUA Rx#: [id number] Amiodarone 360 mg In 200 Dextrose 5% in Water 200 ml @ 1 MG/MIN 33.333 mls/ hr IV .Q6H ONE Rx#: [id number] Heparin Sod,Pork in 0.45% 56 NaCl 25,000 unit In 0.45 % NaCl 1 250ml.bag @ 12 UNITS/KG/HR 7.893 mls/hr IV .Q24H JOSHUA Rx#: [id number] Sodium Chloride 0.9% 500 400 ml 500 ml @ 999 mls/hr IV .Q31M STA Rx#:[id number] Intake, IV Titration 224.167 219.952 Amount Amiodarone 300 mg In 224.167 Dextrose 5% in Water 250 ml @ 0.5 MG/MIN 25 mls/hr IV .Q10H JOSHUA Rx#: [id number] Heparin Sod,Pork in 0.45% 219.952 NaCl 25,000 unit In 0.45 % NaCl 1 250ml.bag @ 12 UNITS/KG/HR 7.893 mls/hr IV .Q24H JOSHUA Rx#: [id number] Oral 720 600 Output: Urine 400 Other: Voiding Method Toilet Urinal # Voids 0 3 # Bowel Movements 1 - Exam Constitutional: vital signs stable, Not in acute distress, pleasant, conversant Lungs: Clear to auscultation bilaterally, clear to percussion, normal respirat ory effort Cardiovascular: tachycardia, no murmurs, no gallops, no rubs, no peripheral edema Gastrointestinal: Soft, no tenderness to palpation, no palpable hepatosplenomegally, bowel sounds positive Extremities: No digital cyanosis or clubbing, peripheral pulses palpable and equal , no calf muscle tenderness Psych: Alert, oriented to place, person and time, appropriate affect, intact judgment - Labs CBC & Chem 7: 12/31/19 06:01 12/31/19 06:01 Labs: Abnormal Lab Results - Last 24 Hours (Table) 12/30/19 12/30/19 12/31/19 Range/Units 16:46 20:01 06:01 WBC 13.8 H (3.8-10.6) k/uL Neutrophils # 11.3 H (1.3-7.7) k/uL APTT (22.0-30.0) sec Glucose (74-99) mg/dL POC Glucose (mg/dL) 156 H 286 H (75-99) mg/dL 12/31/19 12/31/19 12/31/19 Range/Units 06:01 06:01 06:14 WBC (3.8-10.6) k/uL Neutrophils # (1.3-7.7) k/uL APTT 41.4 H (22.0-30.0) sec Glucose 111 H (74-99) mg/dL POC Glucose (mg/dL) 125 H (75-99) mg/dL 12/31/19 Range/Units 11:40 WBC (3.8-10.6) k/uL Neutrophils # (1.3-7.7) k/uL APTT (22.0-30.0) sec Glucose (74-99) mg/dL POC Glucose (mg/dL) 154 H (75-99) mg/dL Assessment and Plan Assessment: The patient is a 79-year-old male with a past medical history of atrial fibrillation, aortic valve replacement, mesothelioma secondary to as bestos exposure presents to the ER with chief complaint of heart racing and palpitations. patient reported having intermittent episodes of heart racing over the last 3 days, he denied any lightheadedness dizziness or syncope or presyncope, he he denied any chest pain but did report some lung discomfort secondary to his right-sided mesothelioma. The patient reported recently having a biopsy and PET scan done and is followed by Dr. Byrd in oncology clinic. Patient is a history of mesothelioma in his previous he had radiation therapy and is scheduled to follow-up with Dr. Byrd this morning to discuss further options for chemotherapy. EKG was consistent with atrial flutter with 2: 1 block 12/31 heart rate is not controlled, patient was symptomatic with SOB CTA of the chest was negative for acute PE, however showed pathologic fracture at site of mesothelioma patient tolerating blood thinner, and amiodarone Echo cardiogram LVEF 60-65% will continue to monitor overnight to optimize heart rate control Plan: Atrial flutter with rapid ventricular response, with history of paroxysmal A. fib not on anticoagulation patient still having episodes of tachycardia CTA chest negative for acute PE amiodarone PO eliquis for stroke prophylaxis Lopressor dose adjusted by cardiology Continue to monitor hemoglobin, and electrolytes Echo LVEF 60-65% no mitral valve stenosis Chronic conditions Diabetes mellitus, hold oral hypoglycemic agents, insulin sliding scale History of CAD status post stents 2015, continue with aspirin and statin Aortic valve replacement 2009, bioprosthetic Mesothelioma outpatient follow-up with oncology, pathologic fracture at site Hyperlipidemia optimize heart rate control possible discharge in AM
--- NOTE | 2019-12-31 14:18 | P.PN ---
Subjective Progress Note Date: 12/31/19 This is a pleasant 79-year-old gentleman with history of hypertension, hyperlipidemia, coronary artery disease with prior stent placement, history of an aortic valve replacement, past medical history as, cell lung carcinoma in the right lung which was diagnosed in May 2018, that is post radiation treatment, patient states he had 5 radiation treatments. Patient recently underwent a biopsy and PET scan, and also carries a recent diagnosis of mesothelioma. His prior job was working with significant asbestos exposure. He does have prior history of smoking, he quit in 1950, he does not drink alcohol. Patient does have a history of paroxysmal atrial fibrillation, he states that he was on xarelto in the past but this was discontinued. At present he was on a baby aspirin and Plavix. He presented to the hospital on this occasion with his of palpitations and heart racing. He states he first noticed it approximately 3 days ago, he states that the symptoms subsided, and again started through the night last night. He had significant heart racing, shortness of breath, and a discomfort in both of his jaws. On presentation here patient was found to be in atrial flutter with a rapid ventricular response. His chest x-ray showed an increasing right sided pulmonary infiltrate and volume loss, pleural thickening compared with last exam. His blood pressure on arrival here 92/60, heart rate in the 150 range, 97% on room air, temperature 97.9. Patient was initiated on IV amiodarone, he has since converted to normal sinus rhythm. His blood pressure this morning 104/58, heart rate in the 90s, 95% on room air. Laboratory data, white blood cell count 14.1, hemoglobin 14.8, platelet count 218. Sodium 138, potassium 4.2, BUN 25, creatinine 1.0. Troponin 0.012, TSH 1.9. At the time of my examination this morning, patient feels well, he denies any palpitations, and his breathing is overall stable. 12/31/2019 Patient seen and examined this morning, continues to be in normal sinus rhythm. His heart rate this morning in the 1 teens. Blood pressure 113/60. White blood cell count 13.8, hemoglobin 14.4, platelet count 184. Sodium 138, potassium 4.0, BUN 17, creatinine 1.0, magnesium 1.7. Objective - Vital Signs Vital signs: Vital Signs Temp 97.5 F L 12/31/19 11:23 Pulse 113 H 12/31/19 11:23 Resp 20 12/31/19 11:23 BP 96/61 12/31/19 11:23 Pulse Ox 95 12/31/19 11:23 Intake & Output 12/30/19 12/31/19 12/31/19 18:59 06:59 18:59 Intake Total 1850.167 219.952 600 Output Total 400 Balance 1850.167 -180.048 600 Weight 66 kg Intake: IV 906 Amiodarone 300 mg In 250 Dextrose 5% in Water 250 ml @ 0.5 MG/MIN 25 mls/hr IV .Q10H JOSHUA Rx#: [id number] Amiodarone 360 mg In 200 Dextrose 5% in Water 200 ml @ 1 MG/MIN 33.333 mls/ hr IV .Q6H ONE Rx#: [id number] Heparin Sod,Pork in 0.45% 56 NaCl 25,000 unit In 0.45 % NaCl 1 250ml.bag @ 12 UNITS/KG/HR 7.893 mls/hr IV .Q24H JOSHUA Rx#: [id number] Sodium Chloride 0.9% 500 400 ml 500 ml @ 999 mls/hr IV .Q31M STA Rx#:[id number] Intake, IV Titration 224.167 219.952 Amount Amiodarone 300 mg In 224.167 Dextrose 5% in Water 250 ml @ 0.5 MG/MIN 25 mls/hr IV .Q10H JOSHUA Rx#: [id number] Heparin Sod,Pork in 0.45% 219.952 NaCl 25,000 unit In 0.45 % NaCl 1 250ml.bag @ 12 UNITS/KG/HR 7.893 mls/hr IV .Q24H JOSHUA Rx#: [id number] Oral 720 600 Output: Urine 400 Other: Voiding Method Toilet Urinal Toilet Urinal # Voids 0 3 # Bowel Movements 1 - Exam PHYSICAL EXAMINATION: GENERAL: 79-year-old gentleman in no acute distress at the time of my examination HEENT: Head is atraumatic, normocephalic. Pupils equal, round. Sclera anicteric. Conjunctiva are clear. Mucous membranes of the mouth are moist. Neck is supple. There is no elevated jugular venous pressure. No carotid bruit is heard. HEART EXAMINATION: Heart S1 and S2 systolic ejection murmur is heard at the base CHEST EXAMINATION: Lungs are clear with mild diminished air entry to the bases ABDOMEN: Soft, nontender. Bowel sounds are heard. No organomegaly noted. EXTREMITIES: 2+ peripheral pulses with no evidence of peripheral edema and no calf tenderness noted. NEUROLOGIC patient is awake, alert and oriented 3 . - Labs CBC & Chem 7: 12/31/19 06:01 12/31/19 06:01 Labs: Abnormal Lab Results - Last 24 Hours (Table) 12/30/19 12/30/19 12/31/19 Range/Units 16:46 20:01 06:01 WBC 13.8 H (3.8-10.6) k/uL Neutrophils # 11.3 H (1.3-7.7) k/uL APTT (22.0-30.0) sec Glucose (74-99) mg/dL POC Glucose (mg/dL) 156 H 286 H (75-99) mg/dL 12/31/19 12/31/19 12/31/19 Range/Units 06:01 06:01 06:14 WBC (3.8-10.6) k/uL Neutrophils # (1.3-7.7) k/uL APTT 41.4 H (22.0-30.0) sec Glucose 111 H (74-99) mg/dL POC Glucose (mg/dL) 125 H (75-99) mg/dL 12/31/19 Range/Units 11:40 WBC (3.8-10.6) k/uL Neutrophils # (1.3-7.7) k/uL APTT (22.0-30.0) sec Glucose (74-99) mg/dL POC Glucose (mg/dL) 154 H (75-99) mg/dL Assessment and Plan Plan: Assessment and plan #1 atrial flutter, typical, with rapid ventricular response, patient currently in normal sinus rhythm #2 history of paroxysmal atrial fibrillation, not currently on anticoagulation #3 known history of coronary artery disease with prior circumflex stenting in 2015 #4 history of aortic valve replacement with tissue aortic valve in March 2010 #5 hyperlipidemia #6 prior history of smoking #7 history of 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 We will increase the patient's dose of beta momo for more optimal heart rate control. He may be able to be discharged home today from our perspective on Eliquis. We will make him a follow-up appointment in the office with Dr. Romero post discharge. DNP note has been reviewed, I agree with a documented findings and plan of care. Patient was seen and examined.
[2019-12-31 17:09] LABS: Glucose,Whole Blood 155 mg/dL (75-99)
--- NOTE | 2019-12-31 19:30 | P.PN ---
Subjective Progress Note Date: 12/31/19 Principal diagnosis: A flutter with RVR. Recent diagnosis of mesothelioma In follow-up today patient states feeling better than on admission. He continues to have the pleuritic type chest pain on the right side, the Mccleary he takes does take the pain from a 6-7/10 down to a 2/10, but it is never quite gone away. Patient denies any fevers, hemoptysis. His is present for us to discuss the recent PET results Objective - Vital Signs Vital signs: Vital Signs Temp 97.5 F L 12/31/19 11:23 Pulse 113 H 12/31/19 11:23 Resp 20 12/31/19 16:00 BP 96/61 12/31/19 11:23 Pulse Ox 95 12/31/19 11:23 Intake & Output 12/31/19 12/31/19 01/01/20 06:59 18:59 06:59 Intake Total 219.952 840 Output Total 400 Balance -180.048 840 Weight 66 kg Intake: Intake, IV Titration 219.952 Amount Heparin Sod,Pork in 0.45% 219.952 NaCl 25,000 unit In 0.45 % NaCl 1 250ml.bag @ 12 UNITS/KG/HR 7.893 mls/hr IV .Q24H JOSHUA Rx#: [id number] Oral 840 Output: Urine 400 Other: Voiding Method Urinal Toilet Urinal # Voids 0 3 # Bowel Movements 1 - Constitutional General appearance: Present: average body habitus, cooperative, no acute distress - EENT Eyes: Present: anicteric sclerae, EOMI ENT: Present: hearing grossly normal - Respiratory Details: Respirations unlabored at rest - Cardiovascular Details: skin warm and dry to touch - Neurologic Neurologic: Present: CNII-XII intact - Musculoskeletal Musculoskeletal: Present: generalized weakness - Psychiatric Psychiatric: Present: A&O x's 3, appropriate affect, intact judgment & insight - Labs CBC & Chem 7: 12/31/19 06:01 12/31/19 06:01 Labs: Abnormal Lab Results - Last 24 Hours (Table) 12/30/19 12/31/19 12/31/19 Range/Units 20:01 06:01 06:01 WBC 13.8 H (3.8-10.6) k/uL Neutrophils # 11.3 H (1.3-7.7) k/uL APTT 41.4 H (22.0-30.0) sec Glucose (74-99) mg/dL POC Glucose (mg/dL) 286 H (75-99) mg/dL 12/31/19 12/31/19 12/31/19 Range/Units 06:01 06:14 11:40 WBC (3.8-10.6) k/uL Neutrophils # (1.3-7.7) k/uL APTT (22.0-30.0) sec Glucose 111 H (74-99) mg/dL POC Glucose (mg/dL) 125 H 154 H (75-99) mg/dL 12/31/19 Range/Units 17:00 WBC (3.8-10.6) k/uL Neutrophils # (1.3-7.7) k/uL APTT (22.0-30.0) sec Glucose (74-99) mg/dL POC Glucose (mg/dL) 155 H (75-99) mg/dL - Imaging and Cardiology PET scan results reviewed Assessment and Plan (1) Atrial flutter Narrative/Plan: Patient is doing much better since admit. Defer to Cardiology for optimal medical management. Current Visit: Yes Status: Acute Priority: High Code(s): I48.92 - UNSPECIFIED ATRIAL FLUTTER SNOMED Code(s): 9197653 (2) Mesothelioma Narrative/Plan: Recent PET scan does not show a significant change from the PET scan done just a few months ago. Patient's mesothelioma is still involving the right lung/pleura, no distant metastases. An appointment will be scheduled with Dr. Morales to discuss current available treatment options. Even if patient does not decide to do treatment at this time I told him that he should keep in contact with Oncologist should problems/concerns arise, to keep him updated on new tr eatments s they become available and as patient support. He and his verbalized understanding. Will set them up with a f/u appointment. Current Visit: Yes Status: Acute Priority: High Code(s): C45.9 - MESOTHELIOMA, UNSPECIFIED SNOMED Code(s): 760672607 (3) Dyspnea Narrative/Plan: Secondary to his lung disease. Exacerbated by arrhythmia. Currently not O2 dependent. Better today Current Visit: Yes Status: Chronic Priority: Medium Code(s): R06.00 - DYSPNEA, UNSPECIFIED SNOMED Code(s): 506653755 (4) Squamous NSCLC Narrative/Plan: history of, treated with definitive radiation Current Visit: No Status: Chronic Priority: Medium Code(s): C34.90 - MALIGNANT NEOPLASM OF UNSP PART OF UNSP BRONCHUS OR LUNG SNOMED Code(s): 931473906 (5) Cancer related pain Narrative/Plan: Patient states doing well on Mccleary. Prescription for the same will be sent to patient's [facility] via the office. Patient will complete start talking form and patient provider contract for narcotics Rx when he comes in for f/u. Current Visit: Yes Status: Acute Priority: High Code(s): G89.3 - NEOPLASM RELATED PAIN (ACUTE) (CHRONIC) SNOMED Code(s): 16840222402121
[2019-12-31 20:01] LABS: Glucose,Whole Blood 238 mg/dL (75-99)
[2020-01-01 06:08] LABS: Glucose,Whole Blood 152 mg/dL (75-99)
[2020-01-01] MEDS: INSULIN ASPART (NovoLOG) 100 UNIT/ML VIAL SQ SCH (06:09)
[2020-01-01 06:48] LABS: Basophils % (A) 0 %; Eosinophils % (A) 0 %; HCT 38.8 % (39.0-53.0); HGB 12.6 gm/dL (13.0-17.5); Lymphocytes # (A) 0.7 k/uL (1.0-4.8); Lymphocytes % (A) 5 %; MCH 30.7 pg (25.0-35.0); MCHC 32.4 g/dL (31.0-37.0); MCV 94.8 fL (80.0-100.0); Mean Platelet Volume 7.4; Monocytes # (A) 0.8 k/uL (0-1.0); Monocytes % (A) 5 %; Neutrophils # (A) 12.9 k/uL (1.3-7.7); Neutrophils % (A) 89 %; Platelet Count 151 k/uL (150-450); RBC 4.09 m/uL (4.30-5.90); RDW 15.2 % (11.5-15.5); WBC 14.5 k/uL (3.8-10.6)
[2020-01-01 06:58] LABS: Albumin 3.2 g/dL (3.5-5.0); Calcium 8.9 mg/dL (8.4-10.2); Potassium 4.5 mmol/L (3.5-5.1); Total Bilirubin 1.3 mg/dL (0.2-1.3); Total Protein 5.7 g/dL (6.3-8.2)
[2020-01-01 08:10] VITALS: BP 103/57; PULSE 112; RESP 17; TEMP 99.4
[2020-01-01] MEDS: HYDROcodone/APAP 5-325MG 1 EACH TAB PO PRN ×2 (08:36→12:23)
[2020-01-01] MEDS: ASPIRIN 81 MG PO SCH (08:39)
[2020-01-01] MEDS: APIXABAN 5 MG TAB PO SCH (08:39)
[2020-01-01] MEDS: AMIODARONE 200 MG TAB PO SCH (08:39)
[2020-01-01] MEDS: ATORVASTATIN 20 MG TAB PO SCH (08:40)
[2020-01-01] MEDS: METOPROLOL TARTRATE 25 MG TAB PO SCH (08:40)
--- NOTE | 2020-01-01 12:26 | P.PN ---
Subjective Progress Note Date: 01/01/20 This is a pleasant 79-year-old gentleman with history of hypertension, hyperlipidemia, coronary artery disease with prior stent placement, history of an aortic valve replacement, past medical history as, cell lung carcinoma in the right lung which was diagnosed in May 2018, that is post radiation treatment, patient states he had 5 radiation treatments. Patient recently underwent a biopsy and PET scan, and also carries a recent diagnosis of mesothelioma. His prior job was working with significant asbestos exposure. He does have prior history of smoking, he quit in 1950, he does not drink alcohol. Patient does have a history of paroxysmal atrial fibrillation, he states that he was on xarelto in the past but this was discontinued. At present he was on a baby aspirin and Plavix. He presented to the hospital on this occasion with his of palpitations and heart racing. He states he first noticed it approximately 3 days ago, he states that the symptoms subsided, and again started through the night last night. He had significant heart racing, shortness of breath, and a discomfort in both of his jaws. On presentation here patient was found to be in atrial flutter with a rapid ventricular response. His chest x-ray showed an increasing right sided pulmonary infiltrate and volume loss, pleural thickening compared with last exam. His blood pressure on arrival here 92/60, heart rate in the 150 range, 97% on room air, temperature 97.9. Patient was initiated on IV amiodarone, he has since converted to normal sinus rhythm. His blood pressure this morning 104/58, heart rate in the 90s, 95% on room air. Laboratory data, white blood cell count 14.1, hemoglobin 14.8, platelet count 218. Sodium 138, potassium 4.2, BUN 25, creatinine 1.0. Troponin 0.012, TSH 1.9. At the time of my examination this morning, patient feels well, he denies any palpitations, and his breathing is overall stable. 12/31/2019 Patient seen and examined this morning, continues to be in normal sinus rhythm. His heart rate this morning in the 1 teens. Blood pressure 113/60. White blood cell count 13.8, hemoglobin 14.4, platelet count 184. Sodium 138, potassium 4.0, BUN 17, creatinine 1.0, magnesium 1.7. 01/01/2020 Patient seen and examined this morning, continues to be in a normal sinus rhythm. Heart rate in the 112 region, blood pressure 104/60, temperature 99.4. White blood cell count 14.5, hemoglobin 12.6, platelet count 151. Sodium 134, potassium 4.5, BUN 15, creatinine 1.0. Objective - Vital Signs Vital signs: Vital Signs Temp 99.4 F 01/01/20 08:00 Pulse 112 H 01/01/20 10:06 Resp 17 01/01/20 08:00 BP 103/57 01/01/20 08:00 Pulse Ox 95 01/01/20 08:00 Intake & Output 12/31/19 01/01/20 01/01/20 18:59 06:59 18:59 Intake Total 840 250 Output Total 300 Balance 840 -300 250 Weight 65.3 kg Intake: Oral 840 250 Output: Urine 300 Other: Voiding Method Toilet Urinal # Voids 3 1 # Bowel Movements 1 - Exam PHYSICAL EXAMINATION: GENERAL: 79-year-old gentleman in no acute distress at the time of my examination HEENT: Head is atraumatic, normocephalic. Pupils equal, round. Sclera anicteric. Conjunctiva are clear. Mucous membranes of the mouth are moist. Neck is supple. There is no elevated jugular venous pressure. No carotid bruit is heard. HEART EXAMINATION: Heart S1 and S2 systolic ejection murmur is heard at the base CHEST EXAMINATION: Lungs are clear with mild diminished air entry to the bases ABDOMEN: Soft, nontender. Bowel sounds are heard. No organomegaly noted. EXTREMITIES: 2+ peripheral pulses with no evidence of peripheral edema and no c kalani tenderness noted. NEUROLOGIC patient is awake, alert and oriented 3 . - Labs CBC & Chem 7: 01/01/20 05:56 01/01/20 05:56 Labs: Abnormal Lab Results - Last 24 Hours (Table) 12/31/19 12/31/19 01/01/20 Range/Units 17:00 20:00 05:56 WBC 14.5 H (3.8-10.6) k/uL RBC 4.09 L (4.30-5.90) m/uL Hgb 12.6 L (13.0-17.5) gm/dL Hct 38.8 L (39.0-53.0) % Neutrophils # 12.9 H (1.3-7.7) k/uL Lymphocytes # 0.7 L (1.0-4.8) k/uL Sodium (137-145) mmol/L Glucose (74-99) mg/dL POC Glucose (mg/dL) 155 H 238 H (75-99) mg/dL Total Protein (6.3-8.2) g/dL Albumin (3.5-5.0) g/dL 01/01/20 01/01/20 Range/Units 05:56 06:07 WBC (3.8-10.6) k/uL RBC (4.30-5.90) m/uL Hgb (13.0-17.5) gm/dL Hct (39.0-53.0) % Neutrophils # (1.3-7.7) k/uL Lymphocytes # (1.0-4.8) k/uL Sodium 134 L (137-145) mmol/L Glucose 143 H (74-99) mg/dL POC Glucose (mg/dL) 152 H (75-99) mg/dL Total Protein 5.7 L (6.3-8.2) g/dL Albumin 3.2 L (3.5-5.0) g/dL Assessment and Plan Plan: Assessment and plan #1 atrial flutter, typical, with rapid ventricular response, patient currently in normal sinus rhythm #2 history of paroxysmal atrial fibrillation, not currently on anticoagulation #3 known history of coronary artery disease with prior circumflex stenting in 2015 #4 history of aortic valve replacement with tissue aortic valve in March 2010 #5 hyperlipidemia #6 prior history of smoking #7 history of 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 We will increase the patient's dose of beta momo for more optimal heart rate control. He may be able to be discharged home today from our perspective on Eliquis. We will make him a follow-up appointment in the office with Dr. Romero post discharge. DNP note has been reviewed, I agree with a documented findings and plan of care. Patient was seen and examined.
--- NOTE | 2020-01-01 12:58 | P.DS ---
Providers Date of admission: 12/30/19 01:59 Attending physician: Axel Blandon MD Consults: 12/30/19 01:57 Consult Physician Stat Consulting Provider: Raudel Wakefield Consult Reason/Comments: a-flutter with RVR Do you want consulting provider notified?: Already Contacted 12/30/19 07:01 Consult Physician Routine Consulting Provider: Yara Morales Consult Reason/Comments: Mesothelioma continuity patient Do you want consulting provider notified?: Yes Primary care physician: [facility] Course: final diagnosis at discharge aflutter with RVR Pathologic rib fracture at site of mesothelioma Mesothelioma Diabetes mellitus hospital course The patient is a 79-year-old male with a past medical history of atrial fibrillation, aortic valve replacement, 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 patient reported having intermittent episodes of heart racing over the last 3 days, he denied any lightheadedness dizziness or syncope or presyncope, he he denied any chest pain but did report some lung discomfort secondary to his right-sided mesothelioma. The patient reported recently having a biopsy and PET scan done and is followed by Dr. Byrd in oncology clinic. Patient is a history of mesothelioma in his previous he had radiation therapy and is scheduled to follow-up with Dr. Byrd this morning to discuss further options for chemotherapy. EKG was consistent with atrial flutter with 2: 1 block 12/31 heart rate is not controlled, patient was symptomatic with SOB CTA of the chest was negative for acute PE, however showed pathologic fracture at site of mesothelioma patient tolerating blood thinner, and amiodarone Echo cardiogram LVEF 60-65% will continue to monitor overnight to optimize heart rate control 01/01 Patient seen and examined doing well denies any trouble breathing Denies any palpitations Constitutional: vital signs stable, Not in acute distress, pleasant, conversant Lungs: Clear to auscultation bilaterally, clear to percussion, normal respiratory effort Cardiovascular: tachycardia, no murmurs, no gallops, no rubs, no peripheral edema Gastrointestinal: Soft, no tenderness to palpation , bowel sounds positive Extremities: No digital cyanosis or clubbing, peripheral pulses palpable and equal , no calf muscle tenderness Psych: Alert, oriented to place, person and time, appropriate affect, intact judgment Discharge home Follow up with PCP and cardiology Follow up with oncology Pain control and pain contract with oncology office 40 minutes were spent discharging this patient, and more than 50% of the time was spent in counseling the patient and family and in coordinating care. Patient Condition at Discharge: Serious Plan - Discharge Summary New Discharge Prescriptions: New Apixaban [Eliquis] 5 mg PO BID #60 tab Amiodarone [Cordarone] 400 mg PO BID #60 tab Metoprolol Tartrate [Lopressor] 50 mg PO BID #60 tab Continue Atorvastatin [Lipitor] 20 mg PO HS Isosorbide Mononitrate ER [Imdur] 30 mg PO DAILY metFORMIN HCL [Glucophage] 500 mg PO BID-W/MEALS #60 tab predniSONE 20 mg PO DAILY Clopidogrel [Plavix] 75 mg PO HS Ondansetron Odt [Zofran ODT] 8 mg PO Q8HR PRN PRN Reason: Nausea Discontinued Metoprolol Tartrate [Lopressor] 50 mg PO BID Flecainide [Tambocor] 50 mg PO BID Aspirin 81 mg PO DAILY chew Discharge Medication List Atorvastatin [Lipitor] 20 mg PO HS 05/17/17 [History] Isosorbide Mononitrate ER [Imdur] 30 mg PO DAILY 06/26/18 [History] metFORMIN HCL [Glucophage] 500 mg PO BID-W/MEALS #60 tab 05/20/19 [Rx] predniSONE 20 mg PO DAILY 11/27/19 [History] Clopidogrel [Plavix] 75 mg PO HS 12/30/19 [History] Ondansetron Odt [Zofran ODT] 8 mg PO Q8HR PRN 12/30/19 [History] Amiodarone [Cordarone] 400 mg PO BID #60 tab 12/31/19 [Rx] Apixaban [Eliquis] 5 mg PO BID #60 tab 12/31/19 [Rx] Metoprolol Tartrate [Lopressor] 50 mg PO BID #60 tab 01/01/20 [Rx] Follow up Appointment(s)/Referral(s): Greg Marques MD [STAFF PHYSICIAN] - 01/09/20 1:30 pm Khushi Belle MD [Primary Care Provider] - 01/07/20 9:45 am Yara Morales MD [STAFF PHYSICIAN] - 01/07/20 12:00 pm Patient Instructions/Handouts: Atrial Flutter (DC), Safe Use of Anticoagulants (DC) Discharge Disposition: HOME SELF-CARE
[2020-01-01] MEDS ORDERED: METOPROLOL TARTRATE 50 MG TAB PO SCH (21:00)
== END 2020-01-01 12:45 | disposition home or self-care (01) | DRG 309 ==
LOC: EC 23:40 → 3SCARD 12-30 01:59
PROVIDERS: ADMIT Family Medicine; ATTEND Family Medicine
DX: I48.3 Typical atrial flutter (principal); M84.58XA Pathological fracture in neoplastic disease, other specified site, initial encounter for fracture; I48.0 Paroxysmal atrial fibrillation; C45.7 Mesothelioma of other sites; Z66 Do not resuscitate; Z51.5 Encounter for palliative care; E11.9 Type 2 diabetes mellitus without complications; D72.829 Elevated white blood cell count, unspecified; K21.9 Gastro-esophageal reflux disease without esophagitis; G89.3 Neoplasm related pain (acute) (chronic); I10 Essential (primary) hypertension; I25.10 Atherosclerotic heart disease of native coronary artery without angina pectoris; E78.5 Hyperlipidemia, unspecified; H91.90 Unspecified hearing loss, unspecified ear; M19.90 Unspecified osteoarthritis, unspecified site; Z79.82 Long term (current) use of aspirin; Z79.02 Long term (current) use of antithrombotics/antiplatelets; Z79.84 Long term (current) use of oral hypoglycemic drugs; Z79.52 Long term (current) use of systemic steroids; Z79.899 Other long term (current) drug therapy; Z97.2 Presence of dental prosthetic device (complete) (partial); Z95.3 Presence of xenogenic heart valve; Z95.5 Presence of coronary angioplasty implant and graft; Z98.890 Other specified postprocedural states; Z87.891 Personal history of nicotine dependence; Z98.41 Cataract extraction status, right eye; Z96.1 Presence of intraocular lens; Z77.090 Contact with and (suspected) exposure to asbestos; Z92.3 Personal history of irradiation; Z85.118 Personal history of other malignant neoplasm of bronchus and lung; Z88.0 Allergy status to penicillin; Z80.3 Family history of malignant neoplasm of breast; Z80.1 Family history of malignant neoplasm of trachea, bronchus and lung; Z80.0 Family history of malignant neoplasm of digestive organs; Z80.8 Family history of malignant neoplasm of other organs or systems; Z82.49 Family history of ischemic heart disease and other diseases of the circulatory system
CPT/HCPCS: 36415; 71046; 71275; 80048; 80053; 83735; 84443; 84484; 85025; 85610; 85730; 93005; 93306; 96365; 96366; 96367; 96375; 96376; 99291